=== PATIENT | male | born 1970 | race Caucasian/White ===

== ENCOUNTER → 2023-03-20 | Outpatient (CLI) | payer OTHER ==
[~2023-03-20] MED LIST: ASPI-543 PO
[2023-03-20 12:48] LABS: Urine Bacteria FEW /hpf (None Seen); Urine Blood Negative /uL (Negative); Urine Mucus FEW (None Seen); Urine Specific Gravity 1.017 (1.001-1.035); Urine WBC <1 /hpf (0 - 3)
[2023-03-20 12:54] LABS: Magnesium 2.2 mg/dL (1.6-2.6); Potassium 4.4 mmol/L (3.5-5.1)
[2023-03-20 13:01] LABS: Albumin 4.3 g/dL (3.4-5.0); BUN/Creatinine Ratio 11.9 (10.0-20.0); Bilirubin, Total 1.5 mg/dL (0.2-1.0); Calcium 9.4 mg/dL (8.5-10.1); Total Protein 7.9 g/dL (6.4-8.2); Uric Acid 8.3 mg/dL (3.5-7.2)
== END | disposition home or self-care (01) ==
LOC: LAB 12:13
PROVIDERS: ATTEND Internal Medicine
DX: R68.89 Other general symptoms and signs (principal); E78.41 Elevated Lipoprotein(a); R73.09 Other abnormal glucose; E61.2 Magnesium deficiency; R94.6 Abnormal results of thyroid function studies; E79.0 Hyperuricemia without signs of inflammatory arthritis and tophaceous disease; R82.90 Unspecified abnormal findings in urine; R82.991 Hypocitraturia; E55.9 Vitamin D deficiency, unspecified; D51.9 Vitamin B12 deficiency anemia, unspecified
CPT/HCPCS: 36415; 80053; 80061; 81001; 82306; 82607; 83036; 83735; 84443; 84550; 87086

== ENCOUNTER → 2023-07-17 | Outpatient (CLI) | payer OTHER ==
[2023-07-17 07:53] LABS: Basophils # (auto) 0.1 10 ^3/uL (0-0.2); Basophils % (auto) 1.3 % (0.0-2.0); Eosinophils # (auto) 0.2 10 ^3/uL (0-0.8); Hematocrit 43.3 % (41.0-53.0); Hemoglobin 14.6 g/dL (13.5-17.5); Lymphocytes # (auto) 1.5 10 ^3/uL (0.4-5.4); Lymphocytes % (auto) 20.3 % (10.0-50.0); Mean Corpuscular Hemoglobin 30.9 pg (28.0-32.0); Mean Corpuscular Hgb Conc. 33.8 g/dL (32.0-36.0); Mean Corpuscular Volume 91.5 fL (80.0-100.0); Monocytes # (auto) 0.7 10 ^3/uL (0-1.3); Monocytes % (auto) 9.9 % (0.0-12.0); Neutrophils # (auto) 4.7 10 ^3/uL (1.6-8.6); Neutrophils % (auto) 65.5 % (37.0-80.0); Red Blood Cells 4.74 10^6/uL (4.5-5.90); Red Cell Distribution Width 14.2 % (11.8-14.3); White Blood Cell 7.2 10^3/uL (4.4-10.8)
[2023-07-17 08:24] LABS: Urine Bacteria NONE SEEN /hpf (None Seen); Urine Blood Negative /uL (Negative); Urine Clarity Clear (Clear); Urine Color Yellow (Yellow); Urine Mucus FEW (None Seen); Urine Protein, UAD TRACE (Negative); Urine Specific Gravity 1.029 (1.001-1.035); Urine WBC 1 /hpf (0 - 3); Urine pH 5.5 (5.0-8.0)
[2023-07-17 08:37] LABS: Alanine Aminotransferase 41 U/L (7-40); Albumin 4.6 g/dL (3.2-4.8); Alkaline Phosphatase 32 U/L (46-116); Anion Gap 6 (5-15); Aspartate Aminotransferase 23 U/L (13-40); Blood Urea Nitrogen 15 mg/dL (9-23); Calcium 9.3 mg/dL (8.5-10.1); Carbon Dioxide 29 mmol/L (20-30); Chloride 104 mmol/L (98-107); Glucose 189 mg/dL (74-106); LDL Cholesterol 67 mg/dL (< 100); Potassium 4.3 mmol/L (3.5-5.1); Sodium 139 mmol/L (136-145); Triglycerides 319 mg/dL (< 150)
[2023-07-17 08:38] LABS: Bilirubin, Total 0.8 mg/dL (0.2-1.0); Cholesterol 126 mg/dL (< 200); HDL Cholesterol 31 mg/dL (40-59); Total Protein 7.3 g/dL (5.7-8.2)
[2023-07-17 11:51] LABS: Prostate Specific Antigen 0.71 ng/mL (0.0-4.0)
[2023-07-17 11:53] LABS: Magnesium 1.8 mg/dL (1.6-2.6)
[2023-07-17 13:11] LABS: Folate (Folic Acid) > 24.00 ng/mL (>5.38)
== END | disposition home or self-care (01) ==
LOC: LAB 07:30
PROVIDERS: ATTEND Internal Medicine
DX: E55.9 Vitamin D deficiency, unspecified (principal); E78.41 Elevated Lipoprotein(a); D51.9 Vitamin B12 deficiency anemia, unspecified; R68.89 Other general symptoms and signs; E61.2 Magnesium deficiency; R94.6 Abnormal results of thyroid function studies; E79.0 Hyperuricemia without signs of inflammatory arthritis and tophaceous disease; R82.991 Hypocitraturia; R82.90 Unspecified abnormal findings in urine; R82.79 Other abnormal findings on microbiological examination of urine
CPT/HCPCS: 36415; 80053; 80061; 81001; 82306; 82607; 82746; 83036; 83735; 84153; 84443; 85025; 87086

== ENCOUNTER → 2023-11-11 | Outpatient (CLI) | payer OTHER ==
[2023-11-11 09:18] LABS: Urine Bacteria NONE SEEN /hpf (None Seen); Urine Blood Negative /uL (Negative); Urine Clarity Clear (Clear); Urine Color Yellow (Yellow); Urine Protein, UAD Negative (Negative); Urine Specific Gravity 1.015 (1.001-1.035); Urine Urobilinogen Normal (Negative); Urine WBC <1 /hpf (0 - 3)
[2023-11-11 09:25] LABS: Alanine Aminotransferase 43 U/L (7-40); Albumin 4.8 g/dL (3.2-4.8); Alkaline Phosphatase 31 U/L (46-116); Anion Gap 7 (5-15); Aspartate Aminotransferase 24 U/L (13-40); BUN/Creatinine Ratio 14.2 (10.0-20.0); Bilirubin, Direct 0.3 mg/dL (<0.3); Blood Urea Nitrogen 16 mg/dL (9-23); Calcium 10.2 mg/dL (8.5-10.1); Carbon Dioxide 27 mmol/L (20-30); Chloride 104 mmol/L (98-107); Cholesterol 127 mg/dL (< 200); Glucose 140 mg/dL (74-106); HDL Cholesterol 29 mg/dL (40-59); LDL Cholesterol 75 mg/dL (< 100); Potassium 4.2 mmol/L (3.5-5.1); Sodium 138 mmol/L (136-145); Triglycerides 245 mg/dL (< 150)
[2023-11-11 09:26] LABS: Bilirubin, Total 0.7 mg/dL (0.2-1.0); Total Protein 7.1 g/dL (5.7-8.2)
[2023-11-11 09:29] LABS: Basophils # (auto) 0.1 10 ^3/uL (0-0.2); Eosinophils # (auto) 0.2 10 ^3/uL (0-0.8); Eosinophils % (auto) 2.3 % (0.0-7.0); Hematocrit 43.5 % (41.0-53.0); Hemoglobin 14.5 g/dL (13.5-17.5); Lymphocytes # (auto) 1.4 10 ^3/uL (0.4-5.4); Lymphocytes % (auto) 18.7 % (10.0-50.0); Mean Corpuscular Hgb Conc. 33.4 g/dL (32.0-36.0); Mean Corpuscular Volume 89.6 fL (80.0-100.0); Monocytes # (auto) 0.8 10 ^3/uL (0-1.3); Monocytes % (auto) 10.2 % (0.0-12.0); Neutrophils # (auto) 5.2 10 ^3/uL (1.6-8.6); Neutrophils % (auto) 67.8 % (37.0-80.0); Red Blood Cells 4.85 10^6/uL (4.5-5.90); Red Cell Distribution Width 14.7 % (11.8-14.3); White Blood Cell 7.7 10^3/uL (4.4-10.8)
[2023-11-11 09:46] LABS: Uric Acid 5.7 mg/dL (3.7-9.2)
[2023-11-11 09:47] LABS: Magnesium 1.9 mg/dL (1.6-2.6)
[2023-11-11 11:47] LABS: Folate (Folic Acid) > 24.00 ng/mL (>5.38)
== END | disposition home or self-care (01) ==
LOC: LAB 08:00
PROVIDERS: ATTEND Specialist
DX: E61.2 Magnesium deficiency (principal); I10 Essential (primary) hypertension; R94.5 Abnormal results of liver function studies; E11.8 Type 2 diabetes mellitus with unspecified complications; E03.9 Hypothyroidism, unspecified; D64.9 Anemia, unspecified; R78.89 Finding of other specified substances, not normally found in blood; E78.41 Elevated Lipoprotein(a); R68.89 Other general symptoms and signs; R94.6 Abnormal results of thyroid function studies; E79.0 Hyperuricemia without signs of inflammatory arthritis and tophaceous disease; R82.90 Unspecified abnormal findings in urine; R82.991 Hypocitraturia; E85.9 Amyloidosis, unspecified; R82.79 Other abnormal findings on microbiological examination of urine; D51.9 Vitamin B12 deficiency anemia, unspecified
CPT/HCPCS: 36415; 80053; 80061; 80076; 81001; 82306; 82607; 82746; 83036; 83735; 84443; 84550; 85025; 87086

== ENCOUNTER → 2023-11-28 | Outpatient (CLI) | payer OTHER | END | disposition home or self-care (01) | LOC: XYW 09:26 | PROVIDERS: ATTEND Specialist | DX: I48.0 Paroxysmal atrial fibrillation (principal); I25.10 Atherosclerotic heart disease of native coronary artery without angina pectoris; I11.9 Hypertensive heart disease without heart failure | CPT/HCPCS: 93306 ==

== ENCOUNTER → 2024-02-11 | Outpatient (CLI) | payer OTHER ==
[~2024-02-11] MED LIST changes: +ALLO300T2 PO; +APIX5TAB PO; +ATOR20TA50 PO; +METO-159 PO; +SOTA80TA PO
[2024-02-11 06:53] LABS: Urine Bacteria None Seen /hpf (None Seen)
[2024-02-11 06:59] LABS: Basophils # (auto) 0.1 10 ^3/uL (0-0.2); Basophils % (auto) 1.2 % (0.0-2.0); Eosinophils # (auto) 0.3 10 ^3/uL (0-0.8); Eosinophils % (auto) 3.7 % (0.0-7.0); Hematocrit 42.1 % (41.0-53.0); Hemoglobin 13.8 g/dL (13.5-17.5); Lymphocytes # (auto) 1.1 10 ^3/uL (0.4-5.4); Lymphocytes % (auto) 16.3 % (10.0-50.0); Mean Corpuscular Hemoglobin 29.7 pg (28.0-32.0); Mean Corpuscular Hgb Conc. 32.8 g/dL (32.0-36.0); Mean Corpuscular Volume 90.8 fL (80.0-100.0); Monocytes # (auto) 0.8 10 ^3/uL (0-1.3); Monocytes % (auto) 11.7 % (0.0-12.0); Neutrophils # (auto) 4.6 10 ^3/uL (1.6-8.6); Neutrophils % (auto) 67.1 % (37.0-80.0); Red Blood Cells 4.64 10^6/uL (4.5-5.90); Red Cell Distribution Width 14.9 % (11.8-14.3); White Blood Cell 6.9 10^3/uL (4.4-10.8)
[2024-02-11 07:12] LABS: Urine Blood Negative /uL (Negative); Urine Budding Yeast OCCASIONAL /hpf (None Seen); Urine Clarity Clear (Clear); Urine Color Yellow (Yellow); Urine Hyaline Cast MANY /lpf (0 - 2); Urine Mucus FEW (None Seen); Urine Protein, UAD 2+ (Negative); Urine Specific Gravity 1.022 (1.001-1.035); Urine Urobilinogen 2 mg/dL (Negative); Urine WBC 4 /hpf (0 - 3)
[2024-02-11 08:47] LABS: Alanine Aminotransferase 30 U/L (7-40); Alkaline Phosphatase 29 U/L (46-116); BUN/Creatinine Ratio 15.8 (10.0-20.0); Blood Urea Nitrogen 18 mg/dL (9-23); Calcium 9.6 mg/dL (8.5-10.1); Carbon Dioxide 28 mmol/L (20-30); Glucose 163 mg/dL (74-106); LDL Cholesterol 64 mg/dL (< 100); Sodium 140 mmol/L (136-145); Total Protein 6.8 g/dL (5.7-8.2); Triglycerides 237 mg/dL (< 150)
[2024-02-11 08:48] LABS: Albumin 4.5 g/dL (3.2-4.8); Aspartate Aminotransferase 23 U/L (13-40); Cholesterol 113 mg/dL (< 200); HDL Cholesterol 27 mg/dL (40-59)
[2024-02-11 08:49] LABS: Bilirubin, Direct 0.4 mg/dL (<0.3)
[2024-02-11 08:54] LABS: Anion Gap 7 (5-15); Chloride 105 mmol/L (98-107)
[2024-02-11 09:14] LABS: Folate (Folic Acid) 29.88 ng/mL (>5.38)
[2024-02-11 09:18] LABS: Uric Acid 6.4 mg/dL (3.7-9.2)
== END | disposition home or self-care (01) ==
LOC: LAB 06:39
PROVIDERS: ATTEND Internal Medicine
DX: E11.9 Type 2 diabetes mellitus without complications (principal); E03.9 Hypothyroidism, unspecified; E78.5 Hyperlipidemia, unspecified; R68.89 Other general symptoms and signs; D64.9 Anemia, unspecified; R78.89 Finding of other specified substances, not normally found in blood; E78.9 Disorder of lipoprotein metabolism, unspecified; E61.2 Magnesium deficiency; E79.0 Hyperuricemia without signs of inflammatory arthritis and tophaceous disease; E85.9 Amyloidosis, unspecified; R82.90 Unspecified abnormal findings in urine; D51.9 Vitamin B12 deficiency anemia, unspecified; Z79.899 Other long term (current) drug therapy
CPT/HCPCS: 36415; 80053; 80061; 81001; 82248; 82306; 82607; 82746; 83036; 83735; 84443; 84550; 85025; 87086

== ENCOUNTER 2024-07-30 10:36 | Inpatient (IN) | payer OTHER ==
[~2024-07-30] VITALS: Ht 182.9 cm; Wt 113.2 kg
--- NOTE | 2024-07-30 11:04 | ED.PDOC ---
HPI Comments 54 y.o male with PMH of HTN, hyperlipidemia, gout, AFIB, pacemaker and on Eliquis, presents to the ED for a chief complaint of left sided chest pain that started 2 weeks ago. Patient reports pain presented intermittent at first, described as a tightness sensation but became constant with pressure pain associated with new onset lightheadedness x 1 day, SOB and diarrhea this morning. Patient denies any nausea, vomiting, fever, or chills. Patient reports the use of alcohol and marijuana. Chief Complaint: Chest Pain Time Seen by MD: 10:51 Primary Care Provider: RATNA Reviewed Notes: Nurses Notes, Medications, Allergies Allergies: Coded Allergies: NO KNOWN ALLERGIES (Unverified , 09/15/16) Home Meds Reported Medications Sotalol Hcl (Sotalol Hcl) 80 Mg Tab, 1 TAB PO BID 12/16/23 Metoprolol Tartrate (Metoprolol Tartrate) 100 Mg Tab, 1 TAB PO BID 12/16/23 Apixaban Base (ELIQUIS) 5 Mg Tab, 1 TAB PO BID 12/16/23 Atorvastatin Calcium (ATORVASTATIN CALCIUM) 20 Mg Tab, 1 TAB PO DAILY 12/16/23 Allopurinol (Allopurinol) 300 Mg Tab, 1 TAB PO DAILY 12/16/23 Aspirin (Aspir-Low) 81 Mg Tab, 81 MG PO DAILY for 30 Days, MG 09/15/16 Information Source: Patient Mode of Arrival: Ambulatory Timing: Weeks (2) Duration: Since onset Location: Chest (L) Radiation: No Radiation Quality: Pressure, Tightness Onset: At Rest Cardiac Risk Factors: Hyperlipidemia, HTN PE Risk Factors: None History of: Similar pain in past Modifying Factors: Nothing Associated Signs and Symptoms: SOB Past Medical History PAST MEDICAL HISTORY: AFIB, Gout, High Lipids, HTN Surgical History: Pacemaker Surgical History (Other): left knee Family History Family History: No family hx of DM, No family hx of HTN Social History Smoker: Non-Smoker Alcohol: Rarely Drugs: Marijuana Lives In: Home Constitutional: denies: chills, diaphoresis, fatigue, fever, malaise, sweats, weakness, others EENTM: denies: blurred vision, double vision, ear bleeding, ear discharge, ear drainage, ear pain, ear ringing, eye pain, eye redness, hearing loss, mouth el n, mouth swelling, nasal discharge, nose bleeding, nose congestion, nose pain, photophobia, tearing, throat pain, throat swelling, voice changes, others Respiratory: reports: SOB at rest, shortness of breath; denies: cough, hemoptysis, orthopnea, SOB with excertion, stridor, wheezing, others Cardiovascular: reports: chest pain, lightheadedness; denies: dizzy spells, diaphoresis, Dyspnea on exertion, edema, irregular heart beat, left arm pain, palpitations, PND, syncope, others Gastrointestinal: reports: diarrhea; denies: abdomen distended, abdominal pain, blood streaked bowels, constipated, dysphagia, difficulty swallowing, hematemesis, melena, nausea, poor appetite, poor fluid intake, rectal bleeding, rectal pain, vomiting, others Genitourinary: denies: burning, dysuria, flank pain, frequency, hematuria, incontinence, penile discharge, penile sore, pain, testicle pain, testicle swelling, urgency, others Neurological: denies: dizziness, fainting, headache, left sided numbness, left sided weakness, numbness, paresthesia, pre-existing deficit, right sided numbness, right sided weakness, seizure, speech problems, tingling, tremors, weakness, others Musculoskeletal: denies: back pain, gout, joint pain, joint swelling, muscle pain, muscle stiffness, neck pain, others Integumetry: denies: bruises, change in color, change in hair/nails, dryness, laceration, lesions, lumps, rash, wounds, others Allergic/Immunocompromised: denies: Difficulty Healing, Frequent Infections, Hives, Itching, others Hematologic/Lymphatic: denies: anemia, blood clots, easy bleeding, easy bruising, swollen glands, others Endocrine: denies: excessive hunger, excessive sweating, excessive thirst, excessive urination, flushing, intolerance to cold, intolerance to heat, unexplained weight gain, unexplained weight loss, others Psychiatric: denies: anxiety, bipolar disorder, depression, hopeless, panic disorder, schizophrenia, sleepless, suicidal, others All Other Systems: Reviewed and Negative Physical Exam General Appearance: Moderate Distress HEENT: Normal ENT Inspection, Pharynx Normal, TMs Normal Neck: Full Range of Motion, Non-Tender, Normal, Normal Inspection Respiratory: Chest Non-Tender, Lungs Clear, No Accessory Muscle Use, No Respiratory Distress, Normal Breath Sounds Cardiovascular: No Edema, No JVD, No Murmur, No Gallop, Normal Peripheral Pulses, Regular Rate/Rhythm Breast Exam: Deferred Gastrointestinal: No Organomegaly, Non Tender, No Pulsatile Mass, Normal Bowel Sounds, Soft Genitalia: Deferred Pelvic: Deferred Rectal: Deferred Extremities: No calf tenderness, Normal capillary refill, Normal inspection, Normal range of motion, Non-tender, No pedal edema Musculoskeletal : Apperance: Normal Neurologic: Alert, traffic engineer II-XII nml as Tested, No Motor Deficits, Normal Affect, Normal Mood, No Sensory Deficits Cerebellar Function: Normal Reflexes: Normal Skin: Dry, Normal Color, Warm Lymphatic: No Adenopathy EKG EKG : Pulse Rate (adult): 70 [place]: Normal Cardiac Rhythm: Paced Block: None ST: Ischemia Was a procedure done? Was a procedure done?: No CP Differential Dx Differential Diagnosis: SD, Pacemaker Malfunction Differential Diagnosis: Angina, Chest Wall Pain, Cholelithiasis, Costochondritis, Pericarditis X-Ray, Labs, Meds, VS Vital Signs Date Time Temp Pulse Resp B/P (MAP) Pulse Ox O2 Delivery O2 Flow Rate FiO2 07/30/24 12:31 73 18 128/98 (108) 94 07/30/24 12:31 18 95 Room Air* 0 21 07/30/24 12:10 70 07/30/24 11:03 69 07/30/24 11:00 Room Air* 0 21 07/30/24 11:00 Room Air* 0 21 07/30/24 11:00 70 16 144/89 (107) 100 07/30/24 10:51 99.1 72 18 142/97 (112) 98 07/30/24 10:49 70 Lab Test 07/30/24 11:56 07/30/24 10:48 Range/Units Troponin I High Sensitivity Pending 13 </=54 ng/L White Blood Count 5.6 4.4-10.8 10^3/uL Red Blood Count 4.46 L 4.5-5.90 10^6/uL Hemoglobin 13.7 13.5-17.5 g/dL Hematocrit 41.1 41.0-53.0 % Mean Corpuscular Volume 92.1 80.0-100.0 fL Mean Corpuscular Hemoglobin 30.8 28.0-32.0 pg Mean Corpuscular Hemoglobin Concent 33.4 32.0-36.0 g/dL Red Cell Distribution Width 14.8 H 11.8-14.3 % Platelet Count 179 140-450 10^3/uL Mean Platelet Volume 7.7 6.9-10.8 fL Neutrophils (%) (Auto) 66.2 37.0-80.0 % Lymphocytes (%) (Auto) 19.0 10.0-50.0 % Monocytes (%) (Auto) 11.6 0.0-12.0 % Eosinophils (%) (Auto) 2.3 0.0-7.0 % Basophils (%) (Auto) 0.9 0.0-2.0 % Neutrophils # (Auto) 3.7 1.6-8.6 10 ^3/uL Lymphocytes # (Auto) 1.1 0.4-5.4 10 ^3/uL Monocytes # (Auto) 0.7 0-1.3 10 ^3/uL Eosinophils # (Auto) 0.1 0-0.8 10 ^3/uL Basophils # (Auto) 0 0-0.2 10 ^3/uL Nucleated Red Blood Cells 0.1 % Prothrombin Time 14.6 H 9.3-11.8 sec Prothrombin Time INR 1.41 H 0.9-1.15 Activated Partial Thromboplast Time 31.4 24.5-34.5 SEC D-Dimer, Quantitative 0.45 0.0-0.49 mg/L FEU Sodium Level 140 136-145 mmol/L Potassium Level 4.3 3.5-5.1 mmol/L Chloride Level 105 98-107 mmol/L Carbon Dioxide Level 30 20-31 mmol/L Anion Gap 5 5-15 Blood Urea Nitrogen 14 9-23 mg/dL Creatinine 1.14 0.700-1.30 mg/dL Glomerular Filtration Rate Calc 76 >90 mL/min BUN/Creatinine Ratio 12.3 10.0-20.0 Serum Glucose 101 74-106 mg/dL Calcium Level 10.1 8.7-10.4 mg/dL Total Bilirubin 1.3 H 0.2-1.0 mg/dL Aspartate Amino Transferase (AST) 14 13-40 U/L Alanine Aminotransferase (ALT) 16 7-40 U/L Alkaline Phosphatase 34 L 46-116 U/L Total Protein 7.3 5.7-8.2 g/dL Albumin 4.9 H 3.2-4.8 g/dL Current Medications Medications (Trade) Dose Ordered Sig/Vinicius Route Start Time Stop Time Status Last Admin Aspirin 162 mg ONCE ONCE PO 07/30/24 11:00 07/30/24 11:02 DC 07/30/24 11:06 CHEST RADIOGRAPH IMPRESSION: No acute disease. The CBC is within normal limits The chemistry panel is within normal limits The INR is 1.41 The D-dimer is negative The patient was given aspirin 162 mg by mouth At this time, the patient's troponin level came back within normal limits. At this time, the patient is being admitted A cardiology consult will be obtained Images Reviewed?: Images reviewed and evaluated by me Time of 1ST Reevaluation: 11:00 Reevaluation 1ST: Unchanged Patient Education/Counseling: Diagnosis, Treatment, Prognosis Family Education/Counseling: No Family Present Departure 1 Departure Time of Disposition: 12:29 Impression: Primary Impression: Acute myocardial ischemia Disposition: ADMITTED INPATIENT Admit to: ICU Condition: Critical Critical Care Note Critical Care Time?: Yes (35 min-critical care time only) Stability Stability form required: Yes Unstable for transfer: ICU, CCU, PCU, JOAN (Intensive VS monitoring), May require CPR (possible rapid decline), ED Physician Assesment (Clinical assesment) Heart Score Heart Score: Heart Score Response (Comments) Value History Moderate Suspicious [address]-Deviation 2 Age 45-64 1 Risk Factors 1 or 2 risk factors 1 Troponin >3 x's Normal limit 2 Total 7 I personally scribed for DL MATTHEW MD ([email or web address]) on 07/30/24 at 11:04. Electronically submitted by Adeola Beaulieu ([email or web address]). I personally scribed for DL MATTHEW MD ([email or web address]) on 07/30/24 at 12:14. Electronically submitted by Adeola Beaulieu ([email or web address]). DL MATTHEW MD Jul 30, 2024 11:04
[2024-07-30] MEDS: ASPirin 81 mg TAB PO ONE (11:06)
[2024-07-30 11:32] LABS: Basophils # (auto) 0 10 ^3/uL (0-0.2); Basophils % (auto) 0.9 % (0.0-2.0); Eosinophils # (auto) 0.1 10 ^3/uL (0-0.8); Eosinophils % (auto) 2.3 % (0.0-7.0); Hematocrit 41.1 % (41.0-53.0); Hemoglobin 13.7 g/dL (13.5-17.5); Lymphocytes # (auto) 1.1 10 ^3/uL (0.4-5.4); Mean Corpuscular Hemoglobin 30.8 pg (28.0-32.0); Mean Corpuscular Hgb Conc. 33.4 g/dL (32.0-36.0); Mean Corpuscular Volume 92.1 fL (80.0-100.0); Monocytes # (auto) 0.7 10 ^3/uL (0-1.3); Monocytes % (auto) 11.6 % (0.0-12.0); Neutrophils # (auto) 3.7 10 ^3/uL (1.6-8.6); Neutrophils % (auto) 66.2 % (37.0-80.0); Nucleated Red Blood Cells % 0.1 %; Platelet Count (auto) 179 10^3/uL (140-450); Red Blood Cells 4.46 10^6/uL (4.5-5.90); Red Cell Distribution Width 14.8 % (11.8-14.3); White Blood Cell 5.6 10^3/uL (4.4-10.8)
[2024-07-30 11:48] LABS: INR 1.41 (0.9-1.15); Partial Thromboplastin Time 31.4 SEC (24.5-34.5); Prothrombin Time 14.6 sec (9.3-11.8)
--- NOTE | 2024-07-30 11:51 | DVH ---
CHEST RADIOGRAPH Indication:cp Technique: Single frontal view of the chest was obtained COMPARISON: XY CHEST PORTABLE on DOS: 12/16/23 FINDINGS: Lines and Tubes: Left chest wall pacemaker Lungs: Clear Pleura: No effusion. No pneumothorax. Cardiomediastinal contours: Unremarkable Bones: Unremarkable IMPRESSION: No acute disease.
[2024-07-30 11:52] LABS: Alanine Aminotransferase 16 U/L (7-40); Albumin 4.9 g/dL (3.2-4.8); Alkaline Phosphatase 34 U/L (46-116); Anion Gap 5 (5-15); Aspartate Aminotransferase 14 U/L (13-40); BUN/Creatinine Ratio 12.3 (10.0-20.0); Bilirubin, Total 1.3 mg/dL (0.2-1.0); Blood Urea Nitrogen 14 mg/dL (9-23); Calcium 10.1 mg/dL (8.7-10.4); Carbon Dioxide 30 mmol/L (20-31); Chloride 105 mmol/L (98-107); Glucose 101 mg/dL (74-106); Potassium 4.3 mmol/L (3.5-5.1); Sodium 140 mmol/L (136-145); Total Protein 7.3 g/dL (5.7-8.2)
[2024-07-30 12:31] VITALS: RESP 18; O2SAT 95
[2024-07-30] MEDS: HEPARIN SODIUM (PORCINE) 5000 UNITS/ML 1ML VIAL IV ONE (12:52)
--- NOTE | 2024-07-30 13:05 | DVHHP2 ---
Admitting Diagnosis: Chest pain History of Present Illness 54 y.o male with PMH of HTN, hyperlipidemia, gout, AFIB, pacemaker and on Eliquis, presents to the ED for a chief complaint of left sided chest pain that started 2 weeks ago. Patient reports pain presented intermittent at first, described as a tightness sensation but became constant with pressure pain associated with new onset lightheadedness x 1 day, SOB and diarrhea this morning. Patient denies any nausea, vomiting, fever, or chills. Patient reports the use of alcohol and marijuana. PAST MEDICAL HISTORY: AFIB, Gout, High Lipids, HTN Surgical History: Pacemaker Surgical History (Other): left knee Family History: No family hx of DM, No family hx of HTN Social History Smoker: Non-Smoker Alcohol: Rarely Drugs: Marijuana Lives In: Home Patient Family History: Family history: Cardiovascular disease G8 MOTHER G8 FATHER Family history: Congenital anomaly Family history: Diabetes mellitus G8 MOTHER Allergies: Coded Allergies: NO KNOWN ALLERGIES (Unverified , 09/15/16) Home Meds Reported Medications Sotalol Hcl (Sotalol Hcl) 80 Mg Tab, 1 TAB PO BID 12/16/23 Metoprolol Tartrate (Metoprolol Tartrate) 100 Mg Tab, 1 TAB PO BID 12/16/23 Apixaban Base (ELIQUIS) 5 Mg Tab, 1 TAB PO BID 12/16/23 Atorvastatin Calcium (ATORVASTATIN CALCIUM) 20 Mg Tab, 1 TAB PO DAILY 12/16/23 Allopurinol (Allopurinol) 300 Mg Tab, 1 TAB PO DAILY 12/16/23 Aspirin (Aspir-Low) 81 Mg Tab, 81 MG PO DAILY for 30 Days, MG 09/15/16 Current Medications Current Medications Medications (Trade) Dose Ordered Sig/Vinicius Route PRN Reason Start Time Stop Time Status Last Admin Heparin Sodium/ Dextrose 250 ml @ 10 mls/hr Q24H IV 07/30/24 11:15 Vital Signs Vital Signs Date Time Temp Pulse Resp B/P (MAP) Pulse Ox O2 Delivery O2 Flow Rate FiO2 07/30/24 12:49 70 07/30/24 12:31 18 128/98 (108) 94 07/30/24 12:31 Room Air* 0 21 07/30/24 10:51 99.1 Physical Exam Generally 54 years old male, morbidly obese, lying in bed. Mild distress HEENT-atraumatic normocephalic Heart-regular rate and rhythm Lungs clear to auscultate Abdomen soft nontender nondistended Musculoskeletal-no edema cyanosis Neuro-AO x3, no focal deficit Results Labs Test 07/30/24 11:56 07/30/24 10:48 Range/Units White Blood Count 5.6 4.4-10.8 10^3/uL Red Blood Count 4.46 L 4.5-5.90 10^6/uL Hemoglobin 13.7 13.5-17.5 g/dL Hematocrit 41.1 41.0-53.0 % Mean Corpuscular Volume 92.1 80.0-100.0 fL Mean Corpuscular Hemoglobin 30.8 28.0-32.0 pg Mean Corpuscular Hemoglobin Concent 33.4 32.0-36.0 g/dL Red Cell Distribution Width 14.8 H 11.8-14.3 % Platelet Count 179 140-450 10^3/uL Mean Platelet Volume 7.7 6.9-10.8 fL Neutrophils (%) (Auto) 66.2 37.0-80.0 % Lymphocytes (%) (Auto) 19.0 10.0-50.0 % Monocytes (%) (Auto) 11.6 0.0-12.0 % Eosinophils (%) (Auto) 2.3 0.0-7.0 % Basophils (%) (Auto) 0.9 0.0-2.0 % Neutrophils # (Auto) 3.7 1.6-8.6 10 ^3/uL Lymphocytes # (Auto) 1.1 0.4-5.4 10 ^3/uL Monocytes # (Auto) 0.7 0-1.3 10 ^3/uL Eosinophils # (Auto) 0.1 0-0.8 10 ^3/uL Basophils # (Auto) 0 0-0.2 10 ^3/uL Nucleated Red Blood Cells 0.1 % Prothrombin Time 14.6 H 9.3-11.8 sec Prothrombin Time INR 1.41 H 0.9-1.15 Activated Partial Thromboplast Time 31.4 24.5-34.5 SEC D-Dimer, Quantitative 0.45 0.0-0.49 mg/L FEU Sodium Level 140 136-145 mmol/L Potassium Level 4.3 3.5-5.1 mmol/L Chloride Level 105 98-107 mmol/L Carbon Dioxide Level 30 20-31 mmol/L Anion Gap 5 5-15 Blood Urea Nitrogen 14 9-23 mg/dL Creatinine 1.14 0.700-1.30 mg/dL Glomerular Filtration Rate Calc 76 >90 mL/min BUN/Creatinine Ratio 12.3 10.0-20.0 Serum Glucose 101 74-106 mg/dL Calcium Level 10.1 8.7-10.4 mg/dL Total Bilirubin 1.3 H 0.2-1.0 mg/dL Aspartate Amino Transferase (AST) 14 13-40 U/L Alanine Aminotransferase (ALT) 16 7-40 U/L Alkaline Phosphatase 34 L 46-116 U/L Total Protein 7.3 5.7-8.2 g/dL Albumin 4.9 H 3.2-4.8 g/dL Primary Diagnosis Chest pain rule out ACS Abnormal EKG Plan Still have a persistent chest EKG shows V paced, abnormal ST segments. Troponin negative Patient started on heparin drip in ED. Continue heparin drip [facility] Check echo of the heart Resume home meds Full code Cardiac diet Heparin drip for DVT prophylaxis PPI for GI Plan discussed with: Patient Problems List: (1) Chest pressure Status: Acute Date of Service: Jul 30, 2024 Billing Provider: EMI IGLESIAS MD Common Visit Codes: [id number] INP/OBS CARE (HIGH) EMI IGLESIAS MD Jul 30, 2024 13:04
[2024-07-30] MEDS: HEPARIN DRIP/D5W 100UNITS/ML 250 ML IV SCH (13:07)
[2024-07-30] MEDS ORDERED: NITROGLYCERIN 0.4 MG SL TAB SL PRN (13:15)
[2024-07-30] MEDS ORDERED: ONDANSETRON HCL 4 MG/2 ML VIAL IV PRN (13:15)
[2024-07-30] MEDS ORDERED: HYDROmorphone HCL 2 MG/ML VL/or syr IV PRN (13:15)
[2024-07-30] MEDS ORDERED: HYDROcodone-ACET 5/325MG TAB PO PRN (13:15)
[2024-07-30] MEDS ORDERED: DOCUSATE SOD 100 MG CAP PO PRN (13:15)
[2024-07-30] MEDS ORDERED: MORPHINE SULFATE INJ 2 MG/ml SYRG IV PRN (13:15)
[2024-07-30] MEDS: SODIUM CHLOR 0.9% PF (SALINE LOCK) 10ML VIAL/SYR IV SCH (14:15)
[2024-07-30 14:30] LABS: Urine Bacteria None Seen /hpf (None Seen)
[2024-07-30 14:49] LABS: Urine Blood Negative /uL (Negative); Urine Clarity Clear (Clear); Urine Color Yellow (Yellow); Urine Protein, UAD 1+ (Negative); Urine Specific Gravity 1.013 (1.001-1.035); Urine Urobilinogen Normal (Negative); Urine WBC 3 /hpf (0 - 3); Urine pH 6.5 (5.0-9.0)
--- NOTE | 2024-07-30 15:48 | ECG ---
[facility] Test Date: 2024-07-30 Test Time: 13:30:06 Pat Name: MEHNAZ AWAN Department: ED Room: 0280T Gender: M Relocation Associate: JV : 1970 Requested By: DL MATTHEW Order Number: [id number] Reading MD: Gio Yoo Measurements Intervals [place] Rate: 70 P: 208 CO: 267 QRS: -82 QRSD: 173 T: 162 QT: 486 QTc: 525 Interpretive Statements A-V dual-paced rhythm with some inhibition No further analysis attempted due to paced rhythm Electronically Signed On 07-31-2024 9:44:18 PDT by Gio Yoo Please click the below link to view image of tracing.
--- NOTE | 2024-07-30 17:28 | DVHINCON2 ---
Date of service: Jul 30, 2024 History of Present Illness HPI 54-year-old gentleman presented to the hospital with 2 weeks of atypical chest discomfort. One day prior to presentation he had shortness of breath/diarrhea and lightheadedness and decided come to the hospital. Cardiology is involved for cardiac aspects of care. He is known to our practice from outside. He does have history of paroxysmal AFib (on Eliquis/sotalol as outpatient) and sick si nus syndrome, status post pacemaker implantation (Biotronik). He denies exertional component to the presentation. He denies orthopnea/palpitations. Home Meds Reported Medications Sotalol Hcl (Sotalol Hcl) 80 Mg Tab, 1 TAB PO BID 12/16/23 Metoprolol Tartrate (Metoprolol Tartrate) 100 Mg Tab, 1 TAB PO BID 12/16/23 Apixaban Base (ELIQUIS) 5 Mg Tab, 1 TAB PO BID 12/16/23 Atorvastatin Calcium (ATORVASTATIN CALCIUM) 20 Mg Tab, 1 TAB PO DAILY 12/16/23 Allopurinol (Allopurinol) 300 Mg Tab, 1 TAB PO DAILY 12/16/23 Aspirin (Aspir-Low) 81 Mg Tab, 81 MG PO DAILY for 30 Days, MG 09/15/16 Past Medical History Others Past medical history includes obesity, hypertension, hyperlipidemia, paroxysmal AFib (on Eliquis/sotalol as outpatient), sick sinus syndrome and status post Biotronik pacemaker implantation and history of gout/obstructive sleep apnea. Patient Family History: Family history: Cardiovascular disease G8 MOTHER G8 FATHER Family history: Congenital anomaly Family history: Diabetes mellitus G8 MOTHER Smoker: Positive Alocohol: Moderate Drugs: Marijuana Review of Systems Ears, Nose, & Throat: No symptom reported Cardiovascular: Lt Headedness All Other Systems 14 point review of system was performed. Relevant findings as per above and as per HPI. Otherwise negative H&P Exam Vital Signs Vital Signs Date Time Temp Pulse Resp B/P (MAP) Pulse Ox O2 Delivery O2 Flow Rate FiO2 07/30/24 16:00 70 23 133/78 (96) 93 07/30/24 12:31 Room Air* 0 21 07/30/24 10:51 99.1 General Appeara: Well developed Head Exam: Normal inspection Neck Exam: Normal inspection Eye Exam: bilateral eye PERRL Mouth: Normal Inspection Pulmonary/Respiratory: Lungs clear Cardiovascular/Chest: Normal inspection, Regular rate, Systolic murmur Peripheral Pulses: 2+ carotid (R), 2+ carotid (L), 2+ femoral (R), 2+ femoral (L), 2+ dorsalis pedis (R), 2+ dorsalis pedis (L), 2+ Radial (R), 2+ Radial (L) Abdominal Exam: Normal bowel sounds, Soft, No tenderness, No hepatospenomegaly Neuro/Mental St: Alert, Oriented Appearance: Appropriate appearance Eye contact/ Speech: Cooperative Labs/Xrays Labs Test 07/30/24 14:28 07/30/24 13:40 07/30/24 10:48 Range/Units Urine Color Yellow Yellow Urine Clarity Clear Clear Urine pH 6.5 5.0-9.0 Urine Specific [place] 1.013 1.001-1.035 Urine Protein 1+ H Negative Urine Ketones Negative Negative Urine Blood Negative Negative /uL Urine Nitrite Negative Negative Urine Bilirubin Negative Negative Urine Urobilinogen Normal Negative mg/dL Urine Leukocyte Esterase Negative Negative /uL Urine RBC <1 0 - 3 /hpf Urine WBC 3 0 - 3 /hpf Urine Squamous Epithelial Cells None seen <5 /hpf Urine Bacteria None seen None Seen /hpf Urine Glucose Normal Normal mg/dL Troponin I High Sensitivity 14 </=54 ng/L White Blood Count 5.6 4.4-10.8 10^3/uL Red Blood Count 4.46 L 4.5-5.90 10^6/uL Hemoglobin 13.7 13.5-17.5 g/dL Hematocrit 41.1 41.0-53.0 % Mean Corpuscular Volume 92.1 80.0-100.0 fL Mean Corpuscular Hemoglobin 30.8 28.0-32.0 pg Mean Corpuscular Hemoglobin Concent 33.4 32.0-36.0 g/dL Red Cell Distribution Width 14.8 H 11.8-14.3 % Platelet Count 179 140-450 10^3/uL Mean Platelet Volume 7.7 6.9-10.8 fL Neutrophils (%) (Auto) 66.2 37.0-80.0 % Lymphocytes (%) (Auto) 19.0 10.0-50.0 % Monocytes (%) (Auto) 11.6 0.0-12.0 % Eosinophils (%) (Auto) 2.3 0.0-7.0 % Basophils (%) (Auto) 0.9 0.0-2.0 % Neutrophils # (Auto) 3.7 1.6-8.6 10 ^3/uL Lymphocytes # (Auto) 1.1 0.4-5.4 10 ^3/uL Monocytes # (Auto) 0.7 0-1.3 10 ^3/uL Eosinophils # (Auto) 0.1 0-0.8 10 ^3/uL Basophils # (Auto) 0 0-0.2 10 ^3/uL Nucleated Red Blood Cells 0.1 % Prothrombin Time 14.6 H 9.3-11.8 sec Prothrombin Time INR 1.41 H 0.9-1.15 Activated Partial Thromboplast Time 31.4 24.5-34.5 SEC D-Dimer, Quantitative 0.45 0.0-0.49 mg/L FEU Sodium Level 140 136-145 mmol/L Potassium Level 4.3 3.5-5.1 mmol/L Chloride Level 105 98-107 mmol/L Carbon Dioxide Level 30 20-31 mmol/L Anion Gap 5 5-15 Blood Urea Nitrogen 14 9-23 mg/dL Creatinine 1.14 0.700-1.30 mg/dL Glomerular Filtration Rate Calc 76 >90 mL/min BUN/Creatinine Ratio 12.3 10.0-20.0 Serum Glucose 101 74-106 mg/dL Calcium Level 10.1 8.7-10.4 mg/dL Total Bilirubin 1.3 H 0.2-1.0 mg/dL Aspartate Amino Transferase (AST) 14 13-40 U/L Alanine Aminotransferase (ALT) 16 7-40 U/L Alkaline Phosphatase 34 L 46-116 U/L Total Protein 7.3 5.7-8.2 g/dL Albumin 4.9 H 3.2-4.8 g/dL Assessment/Plan Plan 54-year-old gentleman presented to the hospital with 2 weeks of atypical chest discomfort. One day prior to presentation he had shortness of breath/diarrhea and lightheadedness and decided come to the hospital. Cardiology is involved for cardiac aspects of care. He is known to our practice from outside. He does have history of paroxysmal AFib (on Eliquis/sotalol/Metoprolol as outpatient) and sick sinus syndrome, status post pacemaker implantation ([employer]). He denies exertional component to the presentation. He denies orthopnea/palpitations. Not in acute distress. No JVD. Mucosa is pink and wet. No carotid bruit. No goiter. Chest: Not using accessory muscles of breathing. No crackles/rhonchi. Cardiac: Regular, no thrill/gallop. Abdomen is soft. There is no gross mass/hepatomegaly. Bowel sound is positive. Extremities: No edema. Dorsalis pedis is 2+ bilateral Past medical history includes obesity, hypertension, hyperlipidemia, paroxysmal AFib (on Eliquis/sotalol as outpatient), sick sinus syndrome and status post Biotronik pacemaker implantation and history of gout/obstructive sleep apnea. Echocardiogram of October 2023 had reported ejection fraction of 45% and inferolateral hypokinesia. Nuclear stress test of May 2021 (performed in the office) had revealed fixed defect and no ischemia. Left heart catheterization of May 2019 had reported ectasia of RCA and no flow limiting agents WBC: 5.6 Hemoglobin: 13.7 D-dimer: 0.45 (within normal limits) Creatinine: 1.14 Potassium: 4.3 Troponin (high sensitive): Chest x-ray revealed: FINDINGS: Lines and Tubes: Left chest wall pacemaker Lungs: Clear Pleura: No effusion. No pneumothorax. Cardiomediastinal contours: Unremarkable Bones: Unremarkable IMPRESSION: No acute disease. EKG revealed paced rhythm Tele reveals paced rhythm Patient is a 54-year-old gentleman who presented with atypical chest discomfort. He did have lightheadedness and diarrhea. Serial, high sensitive troponin has been negative. Presentation is not considered ACS. Atypical chest pain Lightheadedness Hypertension Hyperlipidemia Paroxysmal AFib Obesity Status post pacemaker (Biotronik) Obstructive sleep apnea Cardiac suggestion for management: Managed on telemetry Follow-up electrolytes and kidney function tests and correct abnormalities. Keep potassium above 4 and magnesium above 2 Request for echocardiogram Request for Interrogation of pacemaker (Biotronik) Ischemic workup (nuclear stress test) can be performed as outpatient Further evaluation and management depends on the above and clinical course Thank you for consultation A total of 75 minutes was spent reviewing the patient record, examining the patient, making a diagnostic and therapeutic plan, discussing this plan with medical personnel, following up on diagnostic studies and following the patient for clinical stability excluding any and all procedures. At least 50% of this time was spent in direct, [id number] contact. Thank you for allowing me to participate in this patient's care. Further recommendations will depend on patient's clinical course. Please do not hesitate to contact me if you have any questions or concerns. This medical document was created using electronic medical record system with [employer] computerized dictation system. Although this document has been carefully reviewed, there may still be some phonetic and typographical errors. These areas are purely typographical due to the imperfection of the software programs, and do not reflect any compromise in the patient's medical care. Plan discussed with: Patient, Other (Nurse) SALMA OLIVARES MD Jul 30, 2024 17:28
--- NOTE | 2024-07-30 18:44 | ECG ---
[facility] Test Date: 2024-07-30 Test Time: 11:02:07 Pat Name: MEHNAZ AWAN Department: ED Room: 0280T Gender: M Sheep Sorter: JV : 1970 Requested By: DL MATTHEW Order Number: [id number] Reading MD: Gio Yoo Measurements Intervals [place] Rate: 69 P: 164 [place]: 206 QRS: -80 QRSD: 173 T: 148 QT: 484 QTc: 519 Interpretive Statements Ventricular-paced complexes No further analysis attempted due to paced rhythm Electronically Signed On 07-31-2024 9:44:08 PDT by Gio Yoo Please click the below link to view image of tracing.
[2024-07-30 19:53] VITALS: PULSE 70; RESP 26; O2SAT 94
[2024-07-30 19:59] LABS: INR 1.36 (0.9-1.15); Partial Thromboplastin Time 37.9 SEC (24.5-34.5); Prothrombin Time 14.1 sec (9.3-11.8)
[2024-07-30] MEDS: ACETAMINOPHEN 325 MG TAB PO PRN (20:01)
[2024-07-30 21:39] VITALS: BP 140/88; PULSE 70; RESP 18; TEMP 98; O2SAT 95
[2024-07-30 21:44] VITALS: PULSE 70
[2024-07-30] MEDS ORDERED: SOTALOL HCL 80 MG TAB PO SCH (22:00)
[2024-07-30] MEDS ORDERED: APIXABAN 5 MG TAB PO SCH (22:00)
[2024-07-30] MEDS ORDERED: METOPROLOL TARTRATE 50 MG TAB PO SCH (22:00)
[2024-07-30 22:12] VITALS: PULSE 70; RESP 18; O2SAT 96
[2024-07-30 22:16] VITALS: BP 140/88; PULSE 70; RESP 18; TEMP 98; O2SAT 95
[2024-07-30] MEDS ORDERED: ATOR20TA PO (22:44)
[2024-07-30] MEDS: INFLUENZA TRIVALENT 2024-2025 0.5 ML INJ IM ONE (23:00)
[2024-07-30] MEDS: APIXABAN 5 MG TAB PO SCH (23:17)
[2024-07-30] MEDS: METOPROLOL TARTRATE 50 MG TAB PO SCH (23:17)
[2024-07-30] MEDS: SOTALOL HCL 80 MG TAB PO SCH (23:18)
[2024-07-30] MEDS: ATORVASTATIN 20 MG TAB PO SCH (23:19)
[2024-07-31] VITALS (7 sets, daily range): BP systolic 122–146; BP diastolic 78–94; PULSE 60–73; RESP 19–21; TEMP 98–98.6; O2SAT 94–97
--- NOTE | 2024-07-31 06:25 | DVHPN2 ---
Progress Note - Dictate Date Seen: Jul 31, 2024 Medical Necessity Reason Pt with a Central, PICC or Fol: No vital signs Vital Sign Date Time Temp Pulse Resp B/P (MAP) Pulse Ox O2 Delivery O2 Flow Rate FiO2 07/31/24 01:00 98.6 60 19 122/83 (96) 96 98.6 07/30/24 22:12 Room Air* 0 21 medications Current Medications Medications Dose Ordered Sig/Vinicius Route Start Time Stop Time Status Last Admin Dose Admin Heparin Sodium/ Dextrose 250 ml @ 10 mls/hr Q24H IV 07/30/24 11:15 Hold 07/30/24 13:07 10 MLS/HR Aspirin 81 mg DAILY PO 07/31/24 10:00 Allopurinol 300 mg DAILY PO 07/31/24 10:00 Sodium Chloride 10 ml Q8HR IV 07/30/24 14:00 07/31/24 05:18 10 ML Docusate Sodium 100 mg BIDPRN PRN PO 07/30/24 13:15 Acetaminophen 650 mg Q6HP PRN PO 07/30/24 13:15 07/30/24 20:01 650 MG Acetaminophen/ Hydrocodone Bitart 1 tab Q4HP PRN PO 07/30/24 13:15 Hydromorphone HCl 0.5 mg Q4HP PRN IV 07/30/24 13:15 Ondansetron HCl 4 mg Q4HP PRN IV 07/30/24 13:15 Nitroglycerin 0.4 mg Q5MINP PRN SL 07/30/24 13:15 Morphine Sulfate 2 mg Q30M PRN IV 07/30/24 13:15 Sotalol HCl 80 mg BID PO 07/30/24 22:00 07/30/24 23:18 80 MG Apixaban 5 mg BID PO 07/30/24 22:00 07/30/24 23:17 5 MG Atorvastatin Calcium 20 mg HS PO 07/30/24 22:00 07/30/24 23:19 20 MG Metoprolol Tartrate 100 mg BID PO 07/30/24 22:00 07/30/24 23:17 100 MG laboratory and microbiology Laboratory Tests 07/30/24 10:48 Test 07/30/24 10:48 Range/Units Serum Glucose 101 74-106 mg/dL Assessment/Plan 54-year-old gentleman presented to the hospital with 2 weeks of atypical chest discomfort. One day prior to presentation he had shortness of breath/diarrhea and lightheadedness and decided come to the hospital. Cardiology is involved for cardiac aspects of care. He is known to our practice from outside. He does have history of paroxysmal AFib (on Eliquis/sotalol/Metoprolol as outpatient) and sick sinus syndrome, status post pacemaker implantation (Biotronik). He denies exertional component to the presentation. He denies orthopnea/palpitations. Not in acute distress. No JVD. Mucosa is pink and wet. No carotid bruit. No goiter. Chest: Not using accessory muscles of breathing. No crackles/rhonchi. Cardiac: Regular, no thrill/gallop. Abdomen is soft. There is no gross mass/hepatomegaly. Bowel sound is positive. Extremities: No edema. Dorsalis pedis is 2+ bilateral Past medical history includes obesity, hypertension, hyperlipidemia, paroxysmal AFib (on Eliquis/sotalol as outpatient), sick sinus syndrome and status post Biotronik pacemaker implantation and history of gout/obstructive sleep apnea. Echocardiogram of October 2023 had reported ejection fraction of 45% and inferolateral hypokinesia. Nuclear stress test of May 2021 (performed in the office) had revealed fixed defect and no ischemia. Left heart catheterization of May 2019 had reported ectasia of RCA and no flow limiting agents WBC: 5.6 Hemoglobin: 13.7 D-dimer: 0.45 (within normal limits) Creatinine: 1.14 Potassium: 4.3 Troponin (high sensitive): 13 - - 14 Chest x-ray revealed: FINDINGS: Lines and Tubes: Left chest wall pacemaker Lungs: Clear Pleura: No effusion. No pneumothorax. Cardiomediastinal contours: Unremarkable Bones: Unremarkable IMPRESSION: No acute disease. EKG revealed paced rhythm Tele reveals paced rhythm Patient is a 54-year-old gentleman who presented with atypical chest discomfort. He did have lightheadedness and diarrhea. Serial, high sensitive troponin has been negative. Presentation is not considered ACS. Atypical chest pain Lightheadedness Hypertension Hyperlipidemia Paroxysmal AFib Obesity Status post pacemaker (Biotronik) Obstructive sleep apnea Cardiac suggestion for management: Managed on telemetry Follow-up electrolytes and kidney function tests and correct abnormalities. Keep potassium above 4 and magnesium above 2 Request for Echocardiogram Request for Interrogation of pacemaker (Biotronik) Ischemic workup (nuclear stress test) can be performed as outpatient Further evaluation and management depends on the above and clinical course A total of 55 minutes was spent reviewing the patient record, examining the patient, making a diagnostic and therapeutic plan, discussing this plan with medical personnel, following up on diagnostic studies and following the patient for clinical stability excluding any and all procedures. At least 50% of this time was spent in direct, [id number] contact. Thank you for allowing me to participate in this patient's care. Further recommendations will depend on patient's clinical course. Please do not hesitate to contact me if you have any questions or concerns. This medical document was created using electronic medical record system with [employer] computerized dictation system. Although this document has been carefully reviewed, there may still be some phonetic and typographical errors. These areas are purely typographical due to the imperfection of the software programs, and do not reflect any compromise in the patient's medical care Plan discussed with: Patient, Other (nurse) SALMA OLIVARES MD Jul 31, 2024 06:25
[2024-07-31 09:03] LABS: Basophils # (auto) 0 10 ^3/uL (0-0.2); Basophils % (auto) 0.8 % (0.0-2.0); Eosinophils # (auto) 0.1 10 ^3/uL (0-0.8); Eosinophils % (auto) 2.3 % (0.0-7.0); Hematocrit 42.5 % (41.0-53.0); Hemoglobin 13.8 g/dL (13.5-17.5); Lymphocytes # (auto) 0.9 10 ^3/uL (0.4-5.4); Lymphocytes % (auto) 13.9 % (10.0-50.0); Mean Corpuscular Hemoglobin 30.2 pg (28.0-32.0); Mean Corpuscular Hgb Conc. 32.6 g/dL (32.0-36.0); Mean Corpuscular Volume 92.8 fL (80.0-100.0); Monocytes # (auto) 0.6 10 ^3/uL (0-1.3); Monocytes % (auto) 9.8 % (0.0-12.0); Neutrophils # (auto) 4.6 10 ^3/uL (1.6-8.6); Neutrophils % (auto) 73.2 % (37.0-80.0); Nucleated Red Blood Cells % 0.1 %; Platelet Count (auto) 179 10^3/uL (140-450); Red Blood Cells 4.58 10^6/uL (4.5-5.90); Red Cell Distribution Width 14.8 % (11.8-14.3); White Blood Cell 6.3 10^3/uL (4.4-10.8)
[2024-07-31 09:15] LABS: Alanine Aminotransferase 16 U/L (7-40); Albumin 4.6 g/dL (3.2-4.8); Alkaline Phosphatase 32 U/L (46-116); Anion Gap 8 (5-15); Aspartate Aminotransferase 13 U/L (13-40); BUN/Creatinine Ratio 13.3 (10.0-20.0); Bilirubin, Total 2.1 mg/dL (0.2-1.0); Blood Urea Nitrogen 14 mg/dL (9-23); Calcium 10.2 mg/dL (8.7-10.4); Carbon Dioxide 28 mmol/L (20-31); Chloride 103 mmol/L (98-107); Glucose 126 mg/dL (74-106); Magnesium 1.8 mg/dL (1.6-2.6); Potassium 4.2 mmol/L (3.5-5.1); Sodium 139 mmol/L (136-145); Total Protein 7.3 g/dL (5.7-8.2)
[2024-07-31] MEDS: ASPirin-EC 81 mg tab PO SCH (09:56)
[2024-07-31] MEDS: ALLOPURINOL 100 MG TAB PO SCH (09:58)
[2024-07-31] MEDS ORDERED: ATORVASTATIN 20 MG TAB PO SCH (10:00)
--- NOTE | 2024-07-31 10:40 | DVHPNRES ---
Progress Note Date Seen: Jul 31, 2024 Resident Creating Document: CAROLYNE HERNANDEZ RESIDENT Medical Necessity Reason Pt with a Central, PICC or Fol: No Subjective Patient reports: No new complaints, Feels better Changes from previous H/P or p: No Changes Review of Systems: HEENT:Normal, CVS:Abnormal (Atypical chest pain for 2 weeks, palpitations), RESPIRATORY:Normal, GI:Abnormal (Few episodes of diarrhea), :Normal, MSK:Normal, NEURO:Normal Objective vital signs Vital Sign Date Time Temp Pulse Resp B/P (MAP) Pulse Ox O2 Delivery O2 Flow Rate FiO2 07/31/24 09:58 69 125/79 07/31/24 08:39 98.3 20 97 98.3 07/30/24 22:12 Room Air* 0 21 Total Intake and Output 07/30/24 07/30/24 07/31/24 15:00 23:00 07:00 Intake Total 180 ml Balance 180 ml medications Current Medications Medications Dose Ordered Sig/Vinicius Route Start Time Stop Time Status Last Admin Dose Admin Heparin Sodium/ Dextrose 250 ml @ 10 mls/hr Q24H IV 07/30/24 11:15 Hold 07/30/24 13:07 10 MLS/HR Aspirin 81 mg DAILY PO 07/31/24 10:00 07/31/24 09:56 81 MG Allopurinol 300 mg DAILY PO 07/31/24 10:00 07/31/24 09:58 300 MG Sodium Chloride 10 ml Q8HR IV 07/30/24 14:00 07/31/24 05:18 10 ML Docusate Sodium 100 mg BIDPRN PRN PO 07/30/24 13:15 Acetaminophen 650 mg Q6HP PRN PO 07/30/24 13:15 07/31/24 09:52 650 MG Acetaminophen/ Hydrocodone Bitart 1 tab Q4HP PRN PO 07/30/24 13:15 Hydromorphone HCl 0.5 mg Q4HP PRN IV 07/30/24 13:15 Ondansetron HCl 4 mg Q4HP PRN IV 07/30/24 13:15 Nitroglycerin 0.4 mg Q5MINP PRN SL 07/30/24 13:15 Morphine Sulfate 2 mg Q30M PRN IV 07/30/24 13:15 Sotalol HCl 80 mg BID PO 07/30/24 22:00 11/1/24 09:57 80 MG Apixaban 5 mg BID PO 07/30/24 22:00 07/31/24 09:55 5 MG Atorvastatin Calcium 20 mg HS PO 07/30/24 22:00 07/30/24 23:19 20 MG Metoprolol Tartrate 100 mg BID PO 07/30/24 22:00 07/31/24 09:58 100 MG Examination: GENERAL:Normal, HEENT:Normal, NECK:Normal, LUNGS:Normal, CVS:Normal (Patient noted in sinus rhythm), ABDOMEN:Normal, MSK:Normal, SKIN:Normal, NEURO:Normal, :Normal laboratory and microbiology Laboratory Tests 07/31/24 08:27 Test 07/31/24 08:27 Range/Units Serum Glucose 126 H 74-106 mg/dL Labs and/or images reviewed: Labs reviewed by me, Image(s) reviewed by me Problem List/Assessment/Plan Problem List/Assessment/Plan Hospital Course: Mr. Barber, a 54-year-old gentleman with past medical history significant for paroxysmal AFib on sotalol, metoprolol, sick sinus syndrome status post pacemaker implantation Biotronik dual lead, obesity, hypertension, hyperlipidemia, paroxysmal atrial fibrillation, EF of 45% with inferolateral hypokinesia, which resolved, came with 2 weeks of atypical chest discomfort, lightheadedness diarrhea and sharp shock-like discharges in his chest. He denies any PND, orthopnea, shortness of breath, leg swelling, weight gain, chest pain, fever, chills, profuse sweating, sick contact or any other systemic symptoms. # atypical chest pain: Underlying CAD coronary obstruction to rule out. can be done outpatient, hemodynamically stable, echo, troponin and other workup negative so far. # ?Pacemaker dysfunction: Biotronik device interrogation to continue. continue telemetry. # AFib: Continue home medications , Continue Eliquis 5 b.i.d. recently patient had a lot of sports event where he had binge drinking. Counseling done for alcohol-related arrhythmia. # history of sick sinus syndrome: needing pacemaker implantation. # Grade 1 obesity: BMI of 33.2, weight loss counseling done # obstructive sleep apnea: home CPAP continue at night. 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 cmp follow up, diff bili # diet: cardiac diet, 2 g salt restriction PCP/ network project manager: Dr. Santizo. Barriers to discharge: Cardiology input regarding pacemaker reprogramming pending. Case discussed with Dr. Tay. Code status: Full code. Complex patient care discussion needed total 39 minutes. Plan discussed with: Patient, Other (Primary team, RN) My Orders My Orders Orders - CAROLYNE HERNANDEZ RESIDENT Procedure Category Date Status Time Drug Screen LAB 07/31/24 In Process 10:19 Magnesium Sulfate PHA 07/31/24 In Process 1gm/100ml 10:30 Thyroid Stimulating LAB 07/31/24 In Process Hormone 10:20 Laboratory Results Laboratory Tests 07/31/24 08:27 Chemistry Test 07/30/24 10:48 07/31/24 08:27 Albumin 4.9 g/dL (3.2-4.8) H 4.6 g/dL (3.2-4.8) Calcium Level 10.1 mg/dL (8.7-10.4) 10.2 mg/dL (8.7-10.4) Total Protein 7.3 g/dL (5.7-8.2) 7.3 g/dL (5.7-8.2) Magnesium Level 1.8 mg/dL (1.6-2.6) Coagulation Test 07/30/24 10:48 07/30/24 19:01 Prothrombin Time 14.6 sec (9.3-11.8) H 14.1 sec (9.3-11.8) H Prothrombin Time INR 1.41 (0.9-1.15) H 1.36 (0.9-1.15) H Activated Partial Thromboplast Time 31.4 SEC (24.5-34.5) 37.9 SEC (24.5-34.5) H D-Dimer, Quantitative 0.45 mg/L FEU (0.0-0.49) LFT Test 07/30/24 10:48 07/31/24 08:27 Alanine Aminotransferase (ALT) 16 U/L (7-40) 16 U/L (7-40) Alkaline Phosphatase 34 U/L (46-116) L 32 U/L (46-116) L Aspartate Amino Transferase (AST) 14 U/L (13-40) 13 U/L (13-40) Total Bilirubin 1.3 mg/dL (0.2-1.0) H 2.1 mg/dL (0.2-1.0) H HgA1c, TSH Test 07/31/24 08:27 Thyroid Stimulating Hormone (TSH) Pending Urinalysis Test 07/30/24 14:28 Urine Color Yellow (Yellow) Urine Clarity Clear (Clear) Urine pH 6.5 (5.0-9.0) Urine Specific [place] 1.013 (1.001-1.035) Urine Protein 1+ (Negative) H Urine Ketones Negative (Negative) Urine Blood Negative /uL (Negative) Urine Nitrite Negative (Negative) Urine Bilirubin Negative (Negative) Urine Urobilinogen Normal mg/dL (Negative) Urine Leukocyte Esterase Negative /uL (Negative) Urine RBC <1 /hpf (0 - 3) Urine WBC 3 /hpf (0 - 3) Urine Squamous Epithelial Cells None seen /hpf (<5) Urine Bacteria None seen /hpf (None Seen) Urine Glucose Normal mg/dL (Normal) Date of Service: Jul 31, 2024 Billing Provider: SABRA TAY MD Common Visit Codes: [id number] INP/OBS CARE(HIGH) CAROLYNE HERNANDEZ RESIDENT Jul 31, 2024 10:40 SABRA TAY MD Aug 01, 2024 12:50
[2024-07-31 11:18] LABS: Amphetamine Screen, Urine Neg (NEGATIVE); Barbiturate Scree,Urine Neg (NEGATIVE); Benzodiazephine Screen, Urine Neg (NEGATIVE); Cannabinoid Screen, Urine Pos (NEGATIVE); Cocaine Screen, Urine Neg (NEGATIVE); Opiate Scree,Urine Neg (NEGATIVE); Phencyclidine Screen, Urine Neg (NEGATIVE)
[2024-07-31] MEDS: MAGNESIUM SULFATE 1GM/100ML 100 ML IV ONE (12:35)
[2024-07-31] MEDS: ATORVASTATIN 20 MG TAB PO SCH (12:39)
--- NOTE | 2024-07-31 14:36 | DVHSR ---
APPROVED REPORT EXAM: Two-dimensional and M-mode echocardiogram with Doppler and color Doppler. Blood Pressure: 122/83 mmHg INDICATION Chest Pain rule out ACS Surgery/Intervention Pacemaker: RISK FACTORS Height: 72, Weight: 244 DIMENSIONS LVDd (3.8-5.7cm)LA (2D)4.9 (1.9-4.0cm)Aortic Root3.5 (2.0-3.7cm) LVDs (2.5-4.0cm)LA (MM) (1.9-4.0cm)Aortic Cusp Exc1.7 (1.5-2.0cm) EF (%) 50.0 (55-70%)Rt. Atrium4.7 (1.9-4.0cm)Asc. Aorta cm Mitral Valve MitralMitral Stenosis E wave1.20m/sMV Mean GR.mmHg A wavem/sMV Peak GR.102mmHg E/A ratio0.02D MVAcm2 Aortic Valve Aortic ValveAortic Stenosis V10.92m/Dona Mean GR.2mmHg V21.03m/Dona Peak GR.4mmHg LVOT Diameter2.1 (1.8-2.4cm)Doppler AVA3.09cm2 Pulmonic Valve V20.89m/s Tricuspid Valve TR Velocity1.96m/s [id number] Conclusion Left ventricle: Mild concentric left ventricular hypertrophy was seen. LVEF was around 50%. There was no gross wall motion abnormality. Right ventricle was mildly dilated with normal systolic function. Both atria were mildly dilated. P acing wire were seen in right-sided chambers. Aortic valve: Aortic valve was not well visualized. There was no aortic insufficiency/stenosis. The re was mild mitral/tricuspid regurgitation. Pulmonary valve was not well visualized. Right ventricular systolic pressure was assessed around 30 mm Hg. There was no pericardial effusion.
[2024-07-31] MEDS: MELATONIN 5 MG TAB PO ONE (22:11)
[2024-08-01 01:00] VITALS: BP 108/66; PULSE 61; RESP 20; TEMP 97.8; O2SAT 98
[2024-08-01 05:00] VITALS: BP 128/83; PULSE 60; RESP 20; TEMP 98.4; O2SAT 97
[2024-08-01 05:54] LABS: Basophils # (auto) 0.1 10 ^3/uL (0-0.2); Basophils % (auto) 0.7 % (0.0-2.0); Eosinophils # (auto) 0.2 10 ^3/uL (0-0.8); Eosinophils % (auto) 2.6 % (0.0-7.0); Hematocrit 40.7 % (41.0-53.0); Hemoglobin 13.6 g/dL (13.5-17.5); Lymphocytes # (auto) 1.2 10 ^3/uL (0.4-5.4); Lymphocytes % (auto) 14.7 % (10.0-50.0); Mean Corpuscular Hemoglobin 30.7 pg (28.0-32.0); Mean Corpuscular Hgb Conc. 33.4 g/dL (32.0-36.0); Mean Corpuscular Volume 91.9 fL (80.0-100.0); Monocytes # (auto) 0.9 10 ^3/uL (0-1.3); Monocytes % (auto) 11.5 % (0.0-12.0); Neutrophils # (auto) 5.6 10 ^3/uL (1.6-8.6); Neutrophils % (auto) 70.5 % (37.0-80.0); Nucleated Red Blood Cells % 0.1 %; Platelet Count (auto) 187 10^3/uL (140-450); Red Blood Cells 4.43 10^6/uL (4.5-5.90); Red Cell Distribution Width 14.9 % (11.8-14.3)
--- NOTE | 2024-08-01 06:01 | DVHPN2 ---
Progress Note - Dictate Date Seen: Aug 01, 2024 Medical Necessity Reason Pt with a Central, PICC or Fol: No Subjective Patient seen and examined at the bedside within telemetry. Chart reviewed. vital signs Vital Sign Date Time Temp Pulse Resp B/P (MAP) Pulse Ox O2 Delivery O2 Flow Rate FiO2 08/01/24 05:00 98.4 60 20 128/83 (98) 97 98.4 07/31/24 08:00 Room Air* 0 21 Total Intake and Output 07/31/24 07/31/24 08/01/24 14:59 22:59 06:59 Intake Total 1280 ml Output Total 600 ml Balance 1280 ml -600 ml medications Current Medications Medications Dose Ordered Sig/Vinicius Route Start Time Stop Time Status Last Admin Dose Admin Aspirin 81 mg DAILY PO 07/31/24 10:00 07/31/24 09:56 81 MG Allopurinol 300 mg DAILY PO 07/31/24 10:00 07/31/24 09:58 300 MG Sodium Chloride 10 ml Q8HR IV 07/30/24 14:00 07/31/24 22:12 10 ML Docusate Sodium 100 mg BIDPRN PRN PO 07/30/24 13:15 Acetaminophen 650 mg Q6HP PRN PO 07/30/24 13:15 07/31/24 09:52 650 MG Acetaminophen/ Hydrocodone Bitart 1 tab Q4HP PRN PO 07/30/24 13:15 Hydromorphone HCl 0.5 mg Q4HP PRN IV 07/30/24 13:15 Ondansetron HCl 4 mg Q4HP PRN IV 07/30/24 13:15 Nitroglycerin 0.4 mg Q5MINP PRN SL 07/30/24 13:15 Morphine Sulfate 2 mg Q30M PRN IV 07/30/24 13:15 Sotalol HCl 80 mg BID PO 07/30/24 22:00 07/31/24 22:12 80 MG Apixaban 5 mg BID PO 07/30/24 22:00 07/31/24 22:12 5 MG Metoprolol Tartrate 100 mg BID PO 07/30/24 22:00 07/31/24 22:11 100 MG Atorvastatin Calcium 40 mg HS PO 07/31/24 10:45 07/31/24 12:39 40 MG laboratory and microbiology Test 08/01/24 04:46 Range/Units Serum Glucose Pending Assessment/Plan Assessment/Plan 54-year-old gentleman presented to the hospital with 2 weeks of atypical chest discomfort. One day prior to presentation he had shortness of breath/diarrhea and lightheadedness and decided come to the hospital. Cardiology is involved for cardiac aspects of care. He is known to our practice from outside. He does have history of paroxysmal AFib (on Eliquis/sotalol/Metoprolol as outpatient) and sick sinus syndrome, status post pacemaker implantation (Biotronik). He denies exertional component to the presentation. He denies orthopnea/palpitations. Not in acute distress. No JVD. Mucosa is pink and wet. No carotid bruit. No goiter. Chest: Not using accessory muscles of breathing. No crackles/rhonchi. Cardiac: Regular, no thrill/gallop. Abdomen is soft. There is no gross mass/hepatomegaly. Bowel sound is positive. Extremities: No edema. Dorsalis pedis is 2+ bilateral Past medical history includes obesity, hypertension, hyperlipidemia, paroxysmal AFib (on Eliquis/sotalol as outpatient), sick sinus syndrome and status post Biotronik pacemaker implantation and history of gout/obstructive sleep apnea. Echocardiogram of October 2023 had reported ejection fraction of 45% and inferolateral hypokinesia. Nuclear stress test of May 2021 (performed in the office) had revealed fixed defect and no ischemia. Left heart catheterization of May 2019 had reported ectasia of RCA and no flow limiting agents WBC: 5.6 Hemoglobin: 13.7 D-dimer: 0.45 (within normal limits) Creatinine: 1.14 Potassium: 4.3 Troponin (high sensitive): 13 - - 14 Chest x-ray revealed: FINDINGS: Lines and Tubes: Left chest wall pacemaker Lungs: Clear Pleura: No effusion. No pneumothorax. Cardiomediastinal contours: Unremarkable Bones: Unremarkable IMPRESSION: No acute disease. EKG revealed paced rhythm Tele reveals paced rhythm Device Interrogation revealed DDD mode with lower rate limit of 70bpm, 100% AP, 100% SEMI DRIVER, 2 years 11 months ALICIA, adequate sensing and pacing parameters, overall normal functioning pacemaker Echocardiogram revealed: Left ventricle: Mild concentric left ventricular hypertrophy was seen. LVEF was around 50%. There was no gross wall motion abnormality. Right ventricle was mildly dilated with normal systolic function. Both atria were mildly dilated. Pacing wire were seen in right-sided chambers. Aortic valve: Aortic valve was not well visualized. There was no aortic insufficiency/stenosis. There was mild mitral/tricuspid regurgitation. Pulmonary valve was not well visualized. Right ventricular systolic pressure was assessed around 30 mm Hg. There was no pericardial effusion. Patient is a 54-year-old gentleman who presented with atypical chest discomfort. He did have lightheadedness and diarrhea. Serial, high sensitive troponin has been negative. Presentation is not considered ACS. Atypical chest pain Lightheadedness Hypertension Hyperlipidemia Paroxysmal AFib Obesity Status post pacemaker (Biotronik) Obstructive sleep apnea Cardiac suggestion for management: Managed on telemetry Follow-up electrolytes and kidney function tests and correct abnormalities. Keep potassium above 4 and magnesium above 2 Ischemic workup (nuclear stress test) can be performed as outpatient Cardiac-armas, stable and can be followed outpatient Patient will follow up with Dr. Santizo within 7 - 10 days of discharge for continued management Patient is agreeable to the aforementioned above Further evaluation and management depends on the above and clinical course A total of 55 minutes was spent reviewing the patient record, examining the patient, making a diagnostic and therapeutic plan, discussing this plan with medical personnel, following up on diagnostic studies and following the patient for clinical stability excluding any and all procedures. At least 50% of this time was spent in direct, [id number] contact. Thank you for allowing me to participate in this patient's care. Further recommendations will depend on patient's clinical course. Please do not hesitate to contact me if you have any questions or concerns. This medical document was created using electronic medical record system with [employer] computerized dictation system. Although this document has been carefully reviewed, there may still be some phonetic and typographical errors. These areas are purely typographical due to the imperfection of the software programs, and do not reflect any compromise in the patient's medical care Plan discussed with: Patient, Other (nurse) Plan discussed with: Patient (Patient, Primary RN, and Patients Spouse ) JAVIER ROMAN Aug 01, 2024 06:01
[2024-08-01 06:09] LABS: Alanine Aminotransferase 16 U/L (7-40); Albumin 4.6 g/dL (3.2-4.8); Alkaline Phosphatase 32 U/L (46-116); Anion Gap 9 (5-15); Aspartate Aminotransferase 14 U/L (13-40); BUN/Creatinine Ratio 11.9 (10.0-20.0); Bilirubin, Total 1.5 mg/dL (0.2-1.0); Blood Urea Nitrogen 14 mg/dL (9-23); Calcium 10.4 mg/dL (8.7-10.4); Carbon Dioxide 28 mmol/L (20-31); Chloride 105 mmol/L (98-107); Glucose 104 mg/dL (74-106); Potassium 3.7 mmol/L (3.5-5.1); Sodium 142 mmol/L (136-145); Total Protein 7.2 g/dL (5.7-8.2)
[2024-08-01 09:00] VITALS: BP 137/92; PULSE 69; RESP 16; TEMP 98.1; O2SAT 97
--- NOTE | 2024-08-01 09:14 | DVHPNRES ---
Progress Note Medical Necessity Reason Pt with a Central, PICC or Fol: No Objective vital signs Vital Sign Date Time Temp Pulse Resp B/P (MAP) Pulse Ox O2 Delivery O2 Flow Rate FiO2 08/01/24 08:03 Room Air* 0 21 08/01/24 05:00 98.4 60 20 128/83 (98) 97 98.4 Total Intake and Output 07/31/24 07/31/24 08/01/24 15:00 23:00 07:00 Intake Total 1280 ml Output Total 600 ml Balance 1280 ml -600 ml medications Current Medications Medications Dose Ordered Sig/Vinicius Route Start Time Stop Time Status Last Admin Dose Admin Aspirin 81 mg DAILY PO 07/31/24 10:00 07/31/24 09:56 81 MG Allopurinol 300 mg DAILY PO 07/31/24 10:00 07/31/24 09:58 300 MG Sodium Chloride 10 ml Q8HR IV 07/30/24 14:00 08/01/24 06:05 10 ML Docusate Sodium 100 mg BIDPRN PRN PO 07/30/24 13:15 Acetaminophen 650 mg Q6HP PRN PO 07/30/24 13:15 07/31/24 09:52 650 MG Acetaminophen/ Hydrocodone Bitart 1 tab Q4HP PRN PO 07/30/24 13:15 Hydromorphone HCl 0.5 mg Q4HP PRN IV 07/30/24 13:15 Ondansetron HCl 4 mg Q4HP PRN IV 07/30/24 13:15 Nitroglycerin 0.4 mg Q5MINP PRN SL 07/30/24 13:15 Morphine Sulfate 2 mg Q30M PRN IV 07/30/24 13:15 Sotalol HCl 80 mg BID PO 07/30/24 22:00 07/31/24 22:12 80 MG Apixaban 5 mg BID PO 07/30/24 22:00 07/31/24 22:12 5 MG Metoprolol Tartrate 100 mg BID PO 07/30/24 22:00 07/31/24 22:11 100 MG Atorvastatin Calcium 40 mg HS PO 07/31/24 10:45 07/31/24 12:39 40 MG laboratory and microbiology Laboratory Tests 08/01/24 04:46 Test 08/01/24 04:46 Range/Units Serum Glucose 104 74-106 mg/dL Problem List/Assessment/Plan Problem List/Assessment/Plan Hospital course: Mr. Barber, a 54-year-old gentleman with past medical history significant for paroxysmal AFib on sotalol, metoprolol, sick sinus syndrome status post pacemaker implantation Biotronik dual lead, obesity, hypertension, hyperlipidemia, paroxysmal atrial fibrillation, EF of 45% with inferolateral hypokinesia, which resolved, came with 2 weeks of atypical chest discomfort, lightheadedness diarrhea and sharp shock-like discharges in his chest. He denies any PND, orthopnea, shortness of breath, leg swelling, weight gain, chest pain, fever, chills, profuse sweating, sick contact or any other systemic symptoms. # atypical chest pain: Underlying CAD coronary obstruction to rule out. can be done outpatient, hemodynamically stable, echo, troponin and other workup negative so far. # ?Pacemaker dysfunction: Biotronik device interrogation to continue. continue telemetry. # AFib: Continue home medications , Continue Eliquis 5 b.i.d. recently patient had a lot of sports event where he had binge drinking. Counseling done for alcohol-related arrhythmia. # history of sick sinus syndrome: needing pacemaker implantation. # Grade 1 obesity: BMI of 33.2, weight loss counseling done # obstructive sleep apnea: home CPAP continue at night. 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 cmp follow up, diff bili # diet: cardiac diet, 2 g salt restriction PCP/ outsole cementer machine: Dr. Santizo. Barriers to discharge: Cardiology input regarding pacemaker reprogramming pending. Diet: DVT prophylaxis: Discussed with Dr. Rosas. Code status: Full code. Care discussion needed 35 minutes of discussion. Barriers to discharge: Medical workup and management are ongoing. Earliest discharge planning at recovery. My Orders My Orders Orders - CAROLYNE HERNANDEZ RESIDENT Procedure Category Date Status Time Atorvastatin (Lipitor) PHA 07/31/24 In Process 10:45 Laboratory Results Laboratory Tests 08/01/24 04:46 Chemistry Test 08/01/24 04:46 Albumin 4.6 g/dL (3.2-4.8) Calcium Level 10.4 mg/dL (8.7-10.4) Magnesium Level 2.0 mg/dL (1.6-2.6) Total Protein 7.2 g/dL (5.7-8.2) LFT Test 08/01/24 04:46 Alanine Aminotransferase (ALT) 16 U/L (7-40) Alkaline Phosphatase 32 U/L (46-116) L Aspartate Amino Transferase (AST) 14 U/L (13-40) Total Bilirubin 1.5 mg/dL (0.2-1.0) H Urinalysis Test 07/30/24 14:28 Urine Color Yellow (Yellow) Urine Clarity Clear (Clear) Urine pH 6.5 (5.0-9.0) Urine Specific [place] 1.013 (1.001-1.035) Urine Protein 1+ (Negative) H Urine Ketones Negative (Negative) Urine Blood Negative /uL (Negative) Urine Nitrite Negative (Negative) Urine Bilirubin Negative (Negative) Urine Urobilinogen Normal mg/dL (Negative) Urine Leukocyte Esterase Negative /uL (Negative) Urine RBC <1 /hpf (0 - 3) Urine WBC 3 /hpf (0 - 3) Urine Squamous Epithelial Cells None seen /hpf (<5) Urine Bacteria None seen /hpf (None Seen) Urine Glucose Normal mg/dL (Normal) CAROLYNE HERNANDEZ RESIDENT Aug 01, 2024 09:14
[2024-08-01 10:26] VITALS: BP 137/92; PULSE 70; TEMP 36.9
--- NOTE | 2024-08-01 15:02 | DVHDSRES ---
Discharge Summary Date of Admission Resident Creating Document: CAROLYNE HERNANDEZ RESIDENT Jul 30, 2024 at 13:09 Date of Discharge: Aug 01, 2024 Admitting Diagnosis Chest pain Labs/Diagnostic Data: Laboratory Results Test 08/01/24 04:46 07/31/24 08:27 07/30/24 19:01 07/30/24 14:28 White Blood Count 8.0 10^3/uL (4.4-10.8) Red Blood Count 4.43 10^6/uL (4.5-5.90) Hemoglobin 13.6 g/dL (13.5-17.5) Hematocrit 40.7 % (41.0-53.0) Mean Corpuscular Volume 91.9 fL (80.0-100.0) Mean Corpuscular Hemoglobin 30.7 pg (28.0-32.0) Mean Corpuscular Hemoglobin Concent 33.4 g/dL (32.0-36.0) Red Cell Distribution Width 14.9 % (11.8-14.3) Platelet Count 187 10^3/uL (140-450) Mean Platelet Volume 7.8 fL (6.9-10.8) Neutrophils (%) (Auto) 70.5 % (37.0-80.0) Lymphocytes (%) (Auto) 14.7 % (10.0-50.0) Monocytes (%) (Auto) 11.5 % (0.0-12.0) Eosinophils (%) (Auto) 2.6 % (0.0-7.0) Basophils (%) (Auto) 0.7 % (0.0-2.0) Neutrophils # (Auto) 5.6 10 ^3/uL (1.6-8.6) Lymphocytes # (Auto) 1.2 10 ^3/uL (0.4-5.4) Monocytes # (Auto) 0.9 10 ^3/uL (0-1.3) Eosinophils # (Auto) 0.2 10 ^3/uL (0-0.8) Basophils # (Auto) 0.1 10 ^3/uL (0-0.2) Nucleated Red Blood Cells 0.1 % Sodium Level 142 mmol/L (136-145) Potassium Level 3.7 mmol/L (3.5-5.1) Chloride Level 105 mmol/L (98-107) Carbon Dioxide Level 28 mmol/L (20-31) Anion Gap 9 (5-15) Blood Urea Nitrogen 14 mg/dL (9-23) Creatinine 1.18 mg/dL (0.700-1.30) Glomerular Filtration Rate Calc 73 mL/min (>90) BUN/Creatinine Ratio 11.9 (10.0-20.0) Serum Glucose 104 mg/dL (74-106) Calcium Level 10.4 mg/dL (8.7-10.4) Magnesium Level 2.0 mg/dL (1.6-2.6) Total Bilirubin 1.5 mg/dL (0.2-1.0) Aspartate Amino Transferase (AST) 14 U/L (13-40) Alanine Aminotransferase (ALT) 16 U/L (7-40) Alkaline Phosphatase 32 U/L (46-116) Total Protein 7.2 g/dL (5.7-8.2) Albumin 4.6 g/dL (3.2-4.8) Thyroid Stimulating Hormone (TSH) 1.72 uIU/mL (0.55-4.78) Prothrombin Time 14.1 sec (9.3-11.8) Prothrombin Time INR 1.36 (0.9-1.15) Activated Partial Thromboplast Time 37.9 SEC (24.5-34.5) Urine Color Yellow (Yellow) Urine Clarity Clear (Clear) Urine pH 6.5 (5.0-9.0) Urine Specific [place] 1.013 (1.001-1.035) Urine Protein 1+ (Negative) Urine Ketones Negative (Negative) Urine Blood Negative /uL (Negative) Urine Nitrite Negative (Negative) Urine Bilirubin Negative (Negative) Urine Urobilinogen Normal mg/dL (Negative) Urine Leukocyte Esterase Negative /uL (Negative) Urine RBC <1 /hpf (0 - 3) Urine WBC 3 /hpf (0 - 3) Urine Squamous Epithelial Cells None seen /hpf (<5) Urine Bacteria None seen /hpf (None Seen) Urine Glucose Normal mg/dL (Normal) Urine Opiates Screen Neg (NEGATIVE) Urine Fentanyl Screen Neg (NEGATIVE) Urine Barbiturates Screen Neg (NEGATIVE) Urine Phencyclidine Screen Neg (NEGATIVE) Urine Amphetamines Screen Neg (NEGATIVE) Urine Benzodiazepines Screen Neg (NEGATIVE) Urine Cocaine Screen Neg (NEGATIVE) Urine Cannabinoids Screen Pos (NEGATIVE) Test 07/30/24 13:40 07/30/24 10:48 Troponin I High Sensitivity 14 ng/L (</=54) D-Dimer, Quantitative 0.45 mg/L FEU (0.0-0.49) Other Laboratory Tests 08/01/24 04:46 Brief Hx & Hospital Course: Hospital course: Mr. Awan, a 54-year-old gentleman with past medical history significant for paroxysmal AFib on sotalol, metoprolol, sick sinus syndrome status post pacemaker implantation Biotronik dual lead, obesity, hypertension, hyperlipidemia, paroxysmal atrial fibrillation, EF of 45% with inferolateral hypokinesia, which resolved, came with 2 weeks of atypical chest discomfort, lightheadedness diarrhea and sharp shock-like discharges in his chest. He denies any PND, orthopnea, shortness of breath, leg swelling, weight gain, chest pain, fever, chills, profuse sweating, sick contact or any other systemic symptoms. Device check reveal no significant malfunction. Atrial and ventricular arrhythmia possibly precipitated by recent binge drinking around sports events. Needs outpatient further follow up with treasury analyst, nuclear stress test, we will follow up with established treasury analyst . This a.m. patient left against medical advice (AMA) before I could examine or discussed discharge planning. PCP/ treasury analyst: Dr. Santizo. Medical conditions treated in hospital: # atypical chest pain: Underlying CAD coronary obstruction to rule out, hemodynamically stable, echo, troponin and other workup negative so far. Schedule outpatient stress test. # Pacemaker dysfunction ruled out: Biotronik device interrogation done, reviewed the results. Patient needs to follow up closely with the treasury analyst for further pacemaker monitoring and management. # paroxysmal AFib: Status post extensive ablation and defibrillatory attempts. Continue home medications, Continue Eliquis 5 b.i.d. recently patient had a lot of sports event where he had binge drinking. Counseling done for alcohol- related arrhythmia. # history of sick sinus syndrome status post pacemaker implantation. # Grade 1 obesity: BMI of 33.2, weight loss counseling done # obstructive sleep apnea (EVERETT): home CPAP continue at night. 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 # risk of coronary artery disease/ CAD: Significant family history Continue aspirin and atorvastatin, stress test pending # Essential hypertension: target blood pressure 140/90 or below, lifestyle modification, weight loss and diet continue, diet: cardiac diet, 2 g salt restriction # Mild bilirubinemia: Nonicteric, TBili 2.1 trending down, could be stress related. Discussed with Dr. Ibarra. Code status: Full code. Care discussion needed 35 minutes of discussion. Discharge planning needed total 43 minutes of detailed discussion. Unfortunately discussion could not be completed due to patient's premature departure from hospital against medical advice. Risks and emergency plan discussed with the patient before discharge by the clinical team. Consults/Reason for consult Cardiology Operations or Procedures [place] [address] Ph: [phone] DIAGNOSTIC IMAGING Diagnostic Imaging Report : [id number] Signed PATIENT: MEHNAZ AWAN ACCT: [id number] UNIT: [id number] : 1970 LOC: ER ROOM / BED: / AGE / SEX: 54 / M ADM STATUS: REG ER SERVICE 1048 ORDERING PHYSICIAN: LD MATTHEW MD PROCEDURE(s): CXRP - CHEST PORTABLE REASON: cp ORDER NUMBER(s): [id number], ACCESSION NUMBER(s): [id number] CHEST RADIOGRAPH Indication:cp Technique: Single frontal view of the chest was obtained COMPARISON: XY CHEST PORTABLE on DOS: 12/16/23 FINDINGS: Lines and Tubes: Left chest wall pacemaker Lungs: Clear Pleura: No effusion. No pneumothorax. Cardiomediastinal contours: Unremarkable Bones: Unremarkable IMPRESSION: No acute disease. ATED BY: KLEBER MENDOZA MD DICTATED DATE/TIME: 07/30/24 1149 SIGNED BY: KLEBER MENDOZA MD SIGNED DATE/TIME: 07/30/24 1149 CC: [place] [address] Ph: [phone] DIAGNOSTIC IMAGING Diagnostic Imaging Report : [id number] Signed PATIENT: MEHNAZ AWAN ACCT: [id number] UNIT: [id number] : 1970 LOC: [facility] ROOM / BED: 0280T / A AGE / SEX: 54 / M ADM STATUS: ADM IN SERVICE 1303 ORDERING PHYSICIAN: EMI IGLESIAS MD PROCEDURE(s): ECIDC - ECHO 2D MODE CARDIAC DOP REASON: Chest pain rule out ACS ORDER NUMBER(s): [id number], ACCESSION NUMBER(s): [id number] APPROVED REPORT EXAM: Two-dimensional and M-mode echocardiogram with Doppler and color Doppler. Blood Pressure: 122/83 mmHg INDICATION Chest Pain rule out ACS Surgery/Intervention Pacemaker: RISK FACTORS Height: 72, Weight: 244 DIMENSIONS LVDd (3.8-5.7cm) LA (2D) 4.9 (1.9-4.0cm) Aortic Root 3.5 (2.0- 3.7cm) LVDs (2.5-4.0cm) LA (MM) (1.9-4.0cm) Aortic Cusp Exc 1.7 (1.5- 2.0cm) EF (%) 50.0 (55-70%) Rt. Atrium 4.7 (1.9-4.0cm) Asc. Aorta cm Mitral Valve Mitral Mitral Stenosis E wave 1.20m/s MV Mean GR. mmHg A wave m/s MV Peak GR. 102mmHg E/A ratio 0.0 2D MVA cm2 Aortic Valve Aortic Valve Aortic Stenosis V1 0.92m/s AO Mean GR. 2mmHg V2 1.03m/s AO Peak GR. 4mmHg LVOT Diameter 2.1 (1.8-2.4cm) Doppler MISAEL 3.09cm2 Pulmonic Valve V2 0.89m/s Tricuspid Valve TR Velocity 1.96m/s RVSP 33mmHg Conclusion Left ventricle: Mild concentric left ventricular hypertrophy was seen. LVEF was around 50%. There was no gross wall motion abnormality. Right ventricle was mildly dilated with normal systolic function. Both atria were mildly dilated. Pacing wire were seen in right-sided chambers. Aortic valve: Aortic valve was not well visualized. There was no aortic insufficiency/stenosis. There was mild mitral/tricuspid regurgitation. Pulmonary valve was not well visualized. Right ventricular systolic pressure was assessed around 30 mm Hg. There was no pericardial effusion. SIGNED BY: SALMA OLIVARES MD SIGNED DATE/TIME: 07/31/24 1436 CC: EKG Name: MEHNAZ AWAN Acct: [id number] [facility] [id number] [place] [address] ELECTROCARDIOGRAM REPORT PATIENT: MEHNAZ AWAN ACCT: [id number] : 1970 LOC: [facility] ROOM / BED: [facility] / A AGE / SEX: 54 / M ADM STATUS: ADM IN SERVICE 1148 UNIT: [id number] ORDERING PHYSICIAN: DL MATTHEW MD PROCEDURE(s): EKG - ELECTROCARDIGRAM ORDER NUMBER(s): [id number], ACCESSION NUMBER(s): [id number] [facility] Test Date: 2024-07-30 Test Time: 11:02:07 Pat Name: MEHNAZ AWAN Department: ED Room: [facility] Gender: M Manager Mall: JV : 1970 Requested By: DL MATTHEW Order Number: [id number] Reading MD: Yaw Hansen Measurements Intervals [place] Rate: 69 P: 164 [place]: 206 QRS: -80 QRSD: 173 T: 148 QT: 484 QTc: 519 Interpretive Statements Ventricular-paced complexes No further analysis attempted due to paced rhythm Electronically Signed On 07-31-2024 9:44:08 PDT by Yaw Hansen Please click the below link to view image of tracing. DICTATED BY:YAW HANSEN Sr., MD DICTATED DATE/TIME:07/30/24 1102 ELECTRONICALLY SIGNED BY:YAW HANSEN Sr., MD 07/31/24 0944 ELECTRONICALLY CO-SIGNED BY: Condition at Discharge: Fair Final Diagnosis/Problems List # recurrent atypical chest pain # Pacemaker dysfunction ruled out # paroxysmal AFib # history of sick sinus syndrome status post pacemaker implantation. # Grade 1 obesity # obstructive sleep apnea (EVERETT) # HFmrEF # risk of coronary artery disease/ CAD # Essential hypertension # Mild bilirubinemia Discharge Disposition: AMA Discharge Instruct/Medications Diet: Cardiac 2g Na,low cholest Activity: No Restrictions, As Tolerated Follow Up/Referral: Follow up with the PCP within 1-2 weeks of discharge. Follow up with Cardiology closely for device monitoring and stress test. Medications: As per MAR Please review with primary care physician and treasury analyst for further dose titration Discharge Statement: "Patient was advised to return to the ER or call 911 if any headaches, dizziness, shortness of breath, chest pain, abdominal pain, bleeding, fevers, or worsening of medical condition. Patient was counseled about treatment plan, medications, possible side effects, patientverbalized understanding. All questions were answered to the best of my ability. This discharge took greater then 30 minutes in planning, reviewing documentation, counseling the patient, and discussing with other team members." ASSESSMENT ASSESSMENT Assessment Date of Service: Aug 01, 2024 Billing Provider: JOAQUÍN IBARRA MD Common Visit Codes: 89290-WWS/OBS DISCH DAY >30min CAROLYNE HERNANDEZ RESIDENT Aug 01, 2024 15:02 JOAQUÍN IBARRA MD Aug 02, 2024 12:32
--- NOTE | 2024-08-02 08:51 | ECG ---
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
[2024-08-02] MEDS ORDERED: MAGNESIUM OXIDE 400 MG TAB PO SCH (10:00)
--- NOTE | 2024-08-03 15:17 | ECG ---
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
== END 2024-08-01 11:03 | disposition left against medical advice (07) | DRG 303 ==
LOC: ER 10:36 → TELE 13:09 → TELE-WESTW 21:39
PROVIDERS: ADMIT Internal Medicine; ATTEND Internal Medicine
PROC: 4B02XSZ Measurement of Cardiac Pacemaker, External Approach (ICD-10-PCS; principal; 2024-07-31)
DX: I25.10 Atherosclerotic heart disease of native coronary artery without angina pectoris (principal); I50.20 Unspecified systolic (congestive) heart failure; I48.0 Paroxysmal atrial fibrillation; G47.33 Obstructive sleep apnea (adult) (pediatric); Z68.33 Body mass index [BMI] 33.0-33.9, adult; I11.0 Hypertensive heart disease with heart failure; E66.9 Obesity, unspecified; I07.1 Rheumatic tricuspid insufficiency; E78.5 Hyperlipidemia, unspecified; E80.6 Other disorders of bilirubin metabolism; I49.5 Sick sinus syndrome; Z83.3 Family history of diabetes mellitus; Z82.49 Family history of ischemic heart disease and other diseases of the circulatory system; Z79.899 Other long term (current) drug therapy; Z79.01 Long term (current) use of anticoagulants; Z95.0 Presence of cardiac pacemaker; Z53.29 Procedure and treatment not carried out because of patient's decision for other reasons
CPT/HCPCS: 36415; 71045; 80053; 80307; 81001; 83735; 84443; 84484; 85025; 85379; 85610; 85730; 90656; 93005; 93306; 96365; 99291; G0378

== ENCOUNTER → 2024-08-24 | Outpatient (CLI) | payer OTHER ==
[~2024-08-24] VITALS: Ht 182.9 cm; Wt 111.1 kg
[~2024-08-24] MED LIST changes: +ADENOSINE 93 MG in GIVE UN-DILUTED 0 ML IV STA; +ATOR20TA PO; +REGADENOSON 0.4 MG/5 ML SYRG IV ONE
[2024-08-24] MEDS: REGADENOSON 0.4 MG/5 ML SYRG IV ONE (10:47)
--- NOTE | 2024-08-24 13:11 | DVHSR ---
APPROVED REPORT Exam: Nuclear Stress Test BMI: 0 Stress Test Details HR Max Heart Rate (APMHR): 166.488472 bpm Target HR (85% APMHR): 141.455017 bpm BP ECG Stress ECG Conclusion There is a large area of severely reduced uptake in the entire segment of the anterolateral wall, thi s defect is fixed and seen both in resting and stress images can keeping with the old myocardial scar ring. No evidence of maeve-infarct ischemia was detected. Mildly to moderately reduced left ventricular systolic function with estimated ejection fraction 47%. 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 NM EXAM: Myocardial Perfusion REST/STRESS Imaging Protocol: Rest Tc-99m/Stress Tc-99m 1 day Resting Data Rest SPECT myocardial perfusion imaging was performed in supine position 60 minutes following the int ravenous injection of 10.7 mCi of Tc-99m Sestamibi. Time of rest injection: 0929 Time of rest imagin Administration Route: IV Administration Site: Right Arm Pharmacologic Stress Pharmacologic stress test was performed by injecting Regadenoson 0.4 mg IV push followed by the intra venous injection of 31 mCi of Tc-99m Sestamibi. Time of stress injection: 1041 Time of stress imagin Administration Route: IV Administration Site: Right Arm Gated Stress SPECT was performed 60 minutes after stress injection. The images were gated to evaluate regional wall motion and calculate left ventricular ejection fracti on. Stress only was performed in the Supine position. Perfusion There is a large area of severely reduced uptake in the entire segment of the anterolateral wall whic h is seen on the stress images as well as the resting images. This area is akinetic and is most consi stent with myocardial scarmyocardial scar. Nuclear Conclusion ECG Findings: negative for ischemia Clinical Findings: negative for ischemia Nuclear Findings: negative for ischemia Exercise Capacity: not assessed Left Ventricular Function: abnormal Risk Study: low There is a large area of severely reduced uptake in the entire segment of the anterolateral wall, thi s defect is fixed and seen both in resting and stress images can keeping with the old myocardial scar ring. No evidence of maeve-infarct ischemia was detected. Mildly to moderately reduced left ventricular systolic function with estimated ejection fraction 47%. 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
== END | disposition home or self-care (01) ==
LOC: XYW 08:31
PROVIDERS: ATTEND Specialist
DX: I25.2 Old myocardial infarction (principal); I50.9 Heart failure, unspecified; R06.02 Shortness of breath
CPT/HCPCS: 78452; 93017; A9500; J2785

== ENCOUNTER → 2024-12-16 | Outpatient (CLI) | payer OTHER ==
[~2024-12-16] MED LIST changes: -ADENOSINE 93 MG in GIVE UN-DILUTED 0 ML IV STA; -REGADENOSON 0.4 MG/5 ML SYRG IV ONE
[2024-12-16 10:58] LABS: Urine Bacteria None Seen /hpf (None Seen)
[2024-12-16 11:19] LABS: Urine Blood Negative /uL (Negative); Urine Clarity Clear (Clear); Urine Color Yellow (Yellow); Urine Protein, UAD Negative (Negative); Urine Specific Gravity 1.017 (1.001-1.035); Urine Squamous Epithelial Cell None Seen /hpf (<5); Urine Urobilinogen 3 mg/dL (Negative); Urine WBC < 1 /HPF (0-3); Urine pH 6.5 (5.0-9.0)
[2024-12-16 11:24] LABS: Basophils # (auto) 0.1 10 ^3/uL (0-0.2); Eosinophils # (auto) 0.1 10 ^3/uL (0-0.8); Eosinophils % (auto) 1.7 % (0.0-7.0); Hematocrit 43.8 % (41.0-53.0); Hemoglobin 14.6 g/dL (13.5-17.5); Lymphocytes # (auto) 1.1 10 ^3/uL (0.4-5.4); Lymphocytes % (auto) 14.4 % (10.0-50.0); Mean Corpuscular Hemoglobin 29.5 pg (28.0-32.0); Mean Corpuscular Hgb Conc. 33.2 g/dL (32.0-36.0); Mean Corpuscular Volume 88.9 fL (80.0-100.0); Monocytes # (auto) 0.7 10 ^3/uL (0-1.3); Monocytes % (auto) 9.1 % (0.0-12.0); Neutrophils # (auto) 5.7 10 ^3/uL (1.6-8.6); Neutrophils % (auto) 73.8 % (37.0-80.0); Nucleated Red Blood Cells % 0.2 %; Platelet Count (auto) 220 10^3/uL (140-450); Red Blood Cells 4.93 10^6/uL (4.5-5.90); Red Cell Distribution Width 16.2 % (11.8-14.3); White Blood Cell 7.8 10^3/uL (4.4-10.8)
[2024-12-16 11:35] LABS: Alanine Aminotransferase 19 U/L (7-40); Alkaline Phosphatase 47 U/L (46-116); Anion Gap 8 (5-15); Aspartate Aminotransferase 20 U/L (13-40); BUN/Creatinine Ratio 11.2 (10.0-20.0); Blood Urea Nitrogen 15 mg/dL (9-23); Carbon Dioxide 30 mmol/L (20-31); Chloride 103 mmol/L (98-107); LDL Cholesterol 63 mg/dL (< 100); Magnesium 2.1 mg/dL (1.6-2.6); Potassium 4.4 mmol/L (3.5-5.1); Sodium 141 mmol/L (136-145); Total Protein 7.8 g/dL (5.7-8.2); Triglycerides 87 mg/dL (< 150)
[2024-12-16 11:36] LABS: Cholesterol 101 mg/dL (< 200)
[2024-12-16 11:48] LABS: Albumin 5.1 g/dL (3.2-4.8); Bilirubin, Direct 0.7 mg/dL (<0.3); Bilirubin, Total 1.6 mg/dL (0.2-1.0); Calcium 10.8 mg/dL (8.7-10.4); Glucose 116 mg/dL (74-106); HDL Cholesterol 24 mg/dL (40-59)
[2024-12-16 12:00] LABS: Folate (Folic Acid) 29.69 ng/mL (>5.38); Prostate Specific Antigen 0.69 ng/mL (0.0-4.0)
== END | disposition home or self-care (01) ==
LOC: LAB 10:36
PROVIDERS: ATTEND Internal Medicine
DX: N40.0 Benign prostatic hyperplasia without lower urinary tract symptoms (principal); I10 Essential (primary) hypertension; E11.9 Type 2 diabetes mellitus without complications; I25.10 Atherosclerotic heart disease of native coronary artery without angina pectoris; E78.1 Pure hyperglyceridemia; E78.5 Hyperlipidemia, unspecified; E03.9 Hypothyroidism, unspecified; D64.9 Anemia, unspecified; R68.89 Other general symptoms and signs
CPT/HCPCS: 36415; 80053; 80061; 81001; 82248; 82306; 82607; 82746; 83036; 83735; 84153; 84443; 85025; 87086

== ENCOUNTER 2025-03-18 08:02 | Outpatient (CLI) | payer OTHER ==
[2025-03-18 08:29] LABS: Basophils # (auto) 0.1 10 ^3/uL (0-0.2); Basophils % (auto) 1.1 % (0.0-2.0); Eosinophils # (auto) 0.2 10 ^3/uL (0-0.8); Eosinophils % (auto) 2.4 % (0.0-7.0); Hematocrit 42.3 % (41.0-53.0); Hemoglobin 13.9 g/dL (13.5-17.5); Lymphocytes # (auto) 0.8 10 ^3/uL (0.4-5.4); Lymphocytes % (auto) 12.5 % (10.0-50.0); Mean Corpuscular Hemoglobin 29.1 pg (28.0-32.0); Mean Corpuscular Hgb Conc. 32.8 g/dL (32.0-36.0); Mean Corpuscular Volume 88.8 fL (80.0-100.0); Monocytes # (auto) 0.6 10 ^3/uL (0-1.3); Monocytes % (auto) 9.1 % (0.0-12.0); Neutrophils # (auto) 4.8 10 ^3/uL (1.6-8.6); Neutrophils % (auto) 74.9 % (37.0-80.0); Platelet Count (auto) 180 10^3/uL (140-450); Red Blood Cells 4.76 10^6/uL (4.5-5.90); Red Cell Distribution Width 15.9 % (11.8-14.3); White Blood Cell 6.4 10^3/uL (4.4-10.8)
[2025-03-18 08:31] LABS: Urine Blood Negative /uL (Negative); Urine Clarity Clear (Clear); Urine Color Yellow (Yellow); Urine Protein, UAD TRACE (Negative); Urine Specific Gravity 1.026 (1.001-1.035); Urine Urobilinogen 2 mg/dL (Negative); Urine pH 5.5 (5.0-9.0)
[2025-03-18 08:56] LABS: Alanine Aminotransferase 17 U/L (7-40); Albumin 4.7 g/dL (3.2-4.8); Anion Gap 9 (5-15); Aspartate Aminotransferase 19 U/L (<34); BUN/Creatinine Ratio 11.6 (10.0-20.0); Blood Urea Nitrogen 14 mg/dL (9-23); CRP High Sensitivity 0.14 mg/dL (<1.0); Calcium 10.3 mg/dL (8.7-10.4); Carbon Dioxide 30 mmol/L (20-31); Chloride 104 mmol/L (98-107); Potassium 4.3 mmol/L (3.5-5.1); Sodium 143 mmol/L (136-145); Total Protein 7.4 g/dL (5.7-8.2)
[2025-03-18 08:57] LABS: Alkaline Phosphatase 42 U/L (46-116); Bilirubin, Direct 0.5 mg/dL (<0.3); Glucose 148 mg/dL (74-106)
== END 2025-03-18 17:00 | disposition home or self-care (01) ==
LOC: LAB 08:02
PROVIDERS: ATTEND Internal Medicine
DX: I10 Essential (primary) hypertension (principal); E11.9 Type 2 diabetes mellitus without complications; E03.9 Hypothyroidism, unspecified; E78.5 Hyperlipidemia, unspecified; R68.89 Other general symptoms and signs; R79.82 Elevated C-reactive protein (CRP)
CPT/HCPCS: 36415; 80053; 81003; 82248; 82306; 83036; 84443; 85025; 86141